=== PATIENT | female | born 1940 | race Caucasian/White ===

== ENCOUNTER 2016-08-19 22:38 | Emergency (ER) | payer OTHER, MEDICARE ==
[~2016-08-19] VITALS: Ht 154.9 cm; Wt 65.8 kg
[~2016-08-19 22:38] MED LIST: ALPRAZOLAM0.25 MG PO; ALPRAZOLAM0.5 MG PO; AMLODIPINE BESY1 CA1 PO; BIOTIN1000 MC1 PO; CELEBREX100 MG PO; CELEBREX200 MG PO; COLACE100 MG PO; COUMADIN 3 MG TA3 MG PO; ESCITALOPRAM OX10 MG PO; FIRST-VANCOM25 MG/ML PO; HCTZ/TRIAMTEREN1 TAB PO; HYDRODIURIL 112.5 M1 PO; LIORESAL 10MG T10 MG PO; LOTREL 5 MG-101 CAP PO; METOPROLOL SUC100 MG PO; PERCOCET 325 MG1 TA2 PO; PROBIOTIC1 EACH PO; TRAMADOL50 MG PO; VICODIN 300 MG-1 TAB PO; VICODIN5-300 PO; VIMOVO DR 500-1 EACH PO; VITAB121000 PO; VITAMIN D250000 UNIT PO; VITAMIN D50000 IU PO; VYTORIN 10 MG-41 TAB PO; ZOFRAN 4 MG TABL4 MG PO
--- NOTE | 2016-08-19 22:41 | ED GI/GU/ABDOMINAL COMPLAINT ---
History of Present Illness General Chief Complaint: Nausea, Vomiting, Diarrhea Stated Complaint: BIBA, VOMITING Source: patient, family, old records, EMS Exam Limitations: no limitations Allergies Coded Allergies: NO KNOWN ALLERGIES (05/22/16) Triage Nurses Notes Reviewed? yes ? N Is pt currently ? No HPI: Patient is a 76-year-old female presents complaining of nausea, vomiting. Symptoms onset this morning. Greater than 10 episodes of vomiting since onset. Patient reports she had a migraine earlier today which has resolved but vomiting has continued. Nausea is severe. No abdominal pain present. Last bowel movement was yesterday and normal. Positive chills since arrival to the emergency department. (BERTHA BRANDT,TING) Vital Signs & Intake/Output Vital Signs & Intake/Output Vital Signs Date Time Temp Pulse Resp B/P Pulse O2 O2 Flow FiO2 Ox Delivery Rate 08/20 1031 98.2 Reconcile Medications Alprazolam 0.25 MG TABLET 1 TAB PO TIDPRN PRN ANXIETY (Reported) Amlodipine Besylate/Benazepr (Lotrel 5 MG-10 MG) 1 CAP CAP 1 CAP PO DAILY BP (Reported) Biotin 1,000 MCG TAB.CHEW 1,000 MCG PO DAILY SUPPLEMENT (Reported) ERGOCALCIFEROL (VITAMIN D2) (Vitamin D2) 50,000 UNIT CAPSULE 1 CAP PO Q2W SUPPLEMENT (Reported) Ergocalciferol (Vitamin D2) (Vitamin D2) 50,000 UNIT CAPSULE 1 CAP PO Q 2 WEEKS SUPPLEMENT (Reported) Ezetimibe/Simvastatin (Vytorin 10 MG-40 MG) 1 TAB TAB 1 TAB PO DAILY CHOLESTEROL (Reported) Lactobacillus Acidophilus (Probiotic) 10 BILLION CELL CAPSULE 1 CAP PO DAILY SUPPLEMENT (Reported) Metoprolol Succinate 100 MG TAB.ER.24H 100 MG PO DAILY BP (Reported) Naproxen/Esomeprazole Mag (Vimovo Dr 500-20 MG Tablet) 500 MG-20 MG TAB.IR.DR 1 TAB PO BID "FOR MY JOINTS" (Reported) Ondansetron (Zofran 4 MG Tablet) 4 MG TAB 1 TAB PO Q6P PRN NAUSEA Ondansetron (Zofran Odt) 4 MG TAB.RAPDIS 1 TAB SL TID PRN nausea (JEAN MORENO,SHIELA) Past History Travel History Traveled to [place] past 21 day No Medical History Any Pertinent Medical History? see below for history Neurological: migraine EENT: NONE Cardiovascular: hypertension, PALPITATIONS Respiratory: NONE Gastrointestinal: C. 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 No (TING WILLOUGHBY) Review of Systems Review of Systems Constitutional: Reports: chills. Denies: fever. EENTM: Reports: no symptoms. Respiratory: Denies: cough, short of breath. Cardiovascular: Denies: chest pain. GI: Reports: see HPI, nausea, vomiting. Denies: abdominal pain, diarrhea. Genitourinary: Reports: no symptoms. Musculoskeletal: Denies: back pain, neck pain. Skin: Reports: no symptoms. Neurological/Psychological: Denies: headache. Hematologic/Endocrine: Denies: bruising, bleeding. Immunologic/Allergic: Denies: splenectomy. (TING WILLOUGHBY) Physical Exam Physical Exam General Appearance: well developed/nourished, alert, awake Head: atraumatic, normal appearance Eyes: Bilateral: normal appearance, PERRL, EOMI. Ears, Nose, Throat, Mouth: hearing grossly normal, moist mucous membrane Neck: normal inspection, supple, full range of motion Respiratory: normal breath sounds, chest non-tender, no respiratory distress, lungs clear Cardiovascular: regular rate/rhythm Gastrointestinal: normal bowel sounds, soft, non-tender Back: normal inspection, normal range of motion Extremities: normal range of motion Neurologic/Psych: awake, alert, oriented x 3 Skin: intact, normal color, warm/dry Core Measures ACS in differential dx? Yes ASA ordered for poss ACS? No-ACS ruled out Severe Sepsis Present: No Septic Shock Present: No (TING WILLOUGHBY) Progress Differential Diagnosis: ACUTE CORONARY SYNDROME, GASTROENTERITIS, COLITIS, ELECTROLYTE ABNORMALITY, DEHYDRATION, SEPSIS Initial ED EKG: normal sinus rhythm 69 bpm normal axis, normal intervals, no acute ischemic EKG abnormalities, nonspecific ST/T-wave changes compared to previous EKG Prior EKG: changed (nonspecific st/t wave changes) Hand-Off Endorsed To: NOEMÍ GARIBAY MD Endorsed Time: 0100 Pending: other (HYDRATION, RE-EVALUATION) (TING WILLOUGHBY) Plan of Care: Orders Procedure Date/time Status Regular Diet 08/20 L Active RAPID VIRAL INFLUENZA A 08/20 0359 Complete COMPREHENSIVE METABOLIC PANEL 08/19 2247 Complete CBC WITHOUT DIFFERENTIAL 08/19 2247 Complete EKG 08/19 2247 Active Laboratory Tests 08/19/16 2250: Anion Gap 17 H, Estimated GFR > 60, BUN/Creatinine Ratio 28.0 H, Glucose 192 H, Calcium 9.0, Total Bilirubin 1.4 H, AST 58 H, ALT 48, Alkaline Phosphatase 112, Total Protein 7.7, Albumin 4.7, Globulin 3.0, Albumin/Globulin Ratio 1.6, CBC w Diff NO MAN DIFF REQ, RBC 4.89, MCV 93.7, MCH 31.1 H, RDW 15.4 H, MPV 7.2 L, Gran % 84.8 H, Lymphocytes % 6.5 L, Monocytes % 8.7, Eosinophils % 0, Basophils % 0 L, Absolute Granulocytes 9.3 H, Absolute Lymphocytes 0.7 L, Absolute Monocytes 1.0 H, Absolute Eosinophils 0, Absolute Basophils 0, PUBS MCHC 33.2 Microbiology 08/20 0405 NASOPHARYN: Influenza Virus A & B Rapid Smear - COMP 08/20/2016 12:09:24 AM: Patient reports feeling moderately improved. Nausea has resolved, patient continues with chills. Plan for gentle hydration, continue to monitor overnight and discharge early in the morning if patient remains stable. Discussed with Dr. Garibay. Signed out to Dr. Garibay. MADAI SPARROW(DAUGHTER): [phone] (TING WILLOUGHYB) Unable to contact son to diamond picker the patient. Breakfast and antihypertensives ordered. (JEAN MORENO,SHIELA) Departure Departure Condition: Stable Clinical Impression Primary Impression: Nausea and vomiting Qualifiers: Vomiting type: unspecified Vomiting Intractability: non-intractable Qualified Code: R11.2 - Nausea with vomiting, unspecified Referrals: WILDA MORENO,NEYMAR Garcia (PCP/Family) Departure Forms: Customer Survey General Discharge Information (TING WILLOUGHBY) Departure Time of Disposition: 705 Disposition: HOME OR SELF CARE Additional Instructions: Clear liquids for 12-24 hours until better Prescriptions: Current Visit Scripts Ondansetron (Zofran Odt) 1 TAB SL TID PRN nausea #15 TAB PA/WORK MANAGER Co-Sign Statement Statement: ED Attending supervision documentation- [] I saw and evaluated the patient. I have also reviewed all the pertinent lab results and diagnostic results. I agree with the findings and the plan of care as documented in the PA's/WORK MANAGER's documentation. [] I have reviewed the ED Record and agree with the PA's/WORK MANAGER's documentation. [] Additions or exceptions (if any) to the PAs/WORK MANAGER's note and plan are summarized below: [] (NOEMÍ GARIBAY MD) PA/WORK MANAGER Co-Sign Statement Statement: ED Attending supervision documentation- [X] I saw and evaluated the patient. I have also reviewed all the pertinent lab results and diagnostic results. I agree with the findings and the plan of care as documented in the PA's/WORK MANAGER's documentation. [X] I have reviewed the ED Record and agree with the PA's/WORK MANAGER's documentation. [] Additions or exceptions (if any) to the PAs/WORK MANAGER's note and plan are summarized below: [] (JEAN MORENO,SHIELA) #15 TAB (NOEMÍ GARIBAY MD)
[2016-08-19 23:11] LABS: ABSOLUTE BASOPHIL COUNT 0 /CUMM (0.0-0.2); ABSOLUTE EOSINOPHIL COUNT 0 /CUMM (0.0-0.7); ABSOLUTE GRANULOCYTE CT 9.3 /CUMM (1.4-6.5); ABSOLUTE LYMPH COUNT 0.7 /CUMM (1.2-3.4); BASOPHIL % 0 % (0.0-2.0); EOSINOPHIL % 0 % (0-5); HEMATOCRIT 45.8 % (37-47); MEAN CORPUSCULAR HGB 31.1 PG (27.0-31.0); MEAN CORPUSCULAR HGB CONC 33.2 G/DL (33.0-37.0); MEAN CORPUSCULAR VOLUME 93.7 FL (81.0-99.0); MEAN PLATELET VOLUME 7.2 FL (7.4-10.4); PLATELET COUNT 195 /CUMM (130-400); RBC DISTRIBUTION WIDTH 15.4 % (11.5-14.5); RED BLOOD CELL CT 4.89 /CUMM (4.20-5.40)
[2016-08-19 23:12] LABS: GRANULOCYTE % 84.8 % (42.2-75.2)
[2016-08-20] MEDS ORDERED: ZOFRAN ODT4 M1 SL (07:07)
[2016-08-20 10:09] VITALS: BP 145/85
== END 2016-08-20 10:36 ==
LOC: ERH 22:38
PROVIDERS: Physician Assistant
DX: R11.2 Nausea with vomiting, unspecified (principal)
CPT/HCPCS: 87804; 87804-59; 93005; 93010; 96374; 96375; 96376; J2405; J2550; J2765

== ENCOUNTER 2016-08-29 20:52 | Emergency (ER) | payer OTHER, MEDICARE ==
[~2016-08-29] VITALS: Ht 165.1 cm; Wt 74.8 kg
[~2016-08-29 20:52] MED LIST changes: +ZOFRAN ODT4 M1 SL
--- NOTE | 2016-08-29 21:04 | ED SYNCOPE COMPLAINT ---
History of Present Illness General Chief Complaint: Fall Stated Complaint: BIBA FALL Source: patient, EMS Exam Limitations: no limitations Vital Signs & Intake/Output Vital Signs & Intake/Output Vital Signs Date Time Temp Pulse Resp B/P Pulse O2 O2 Flow FiO2 Ox Delivery Rate 08/30 0104 97.7 85 18 135/82 98 Room Air 08/29 2224 Room Air 08/29 2109 97.7 87 18 142/87 97 Room Air ED Intake and Output 08/30 0000 08/29 1200 Intake Total Output Total Balance Patient 165 lb Weight Allergies Coded Allergies: NO KNOWN ALLERGIES (05/22/16) Reconcile Medications Alprazolam 0.25 MG TABLET 1 TAB PO TIDPRN PRN ANXIETY (Reported) Amlodipine Besylate/Benazepr (Lotrel 5 MG-10 MG) 1 CAP CAP 1 CAP PO DAILY BP (Reported) Biotin 1,000 MCG TAB.CHEW 1,000 MCG PO DAILY SUPPLEMENT (Reported) ERGOCALCIFEROL (VITAMIN D2) (Vitamin D2) 50,000 UNIT CAPSULE 1 CAP PO Q2W SUPPLEMENT (Reported) Ergocalciferol (Vitamin D2) (Vitamin D2) 50,000 UNIT CAPSULE 1 CAP PO Q 2 WEEKS SUPPLEMENT (Reported) Ezetimibe/Simvastatin (Vytorin 10 MG-40 MG) 1 TAB TAB 1 TAB PO DAILY CHOLESTEROL (Reported) Lactobacillus Acidophilus (Probiotic) 10 BILLION CELL CAPSULE 1 CAP PO DAILY SUPPLEMENT (Reported) Metoprolol Succinate 100 MG TAB.ER.24H 100 MG PO DAILY BP (Reported) Naproxen/Esomeprazole Mag (Vimovo Dr 500-20 MG Tablet) 500 MG-20 MG TAB.IR.DR 1 TAB PO BID "FOR MY JOINTS" (Reported) Ondansetron (Zofran 4 MG Tablet) 4 MG TAB 1 TAB PO Q6P PRN NAUSEA Ondansetron (Zofran Odt) 4 MG TAB.RAPDIS 1 TAB SL TID PRN nausea Triage Note: PT BIBA FROM HOME. PER EMS PT ?SYNCOPAL EPISODE, LIFE ALERT BUTTON WAS PRESSED. PT DOES NOT RECALL EVENT, PT TEARFUL AND ANXIOUS ON ARRIVAL. SLIGHTLY CONFUSED, NO FAMILY WITH PT. PT DENIES TAKING ANY BLOOD THINNERS. AT BEDSIDE FOR PT EVAL. Triage Nurses Notes Reviewed? yes Timing: single episode today Precipitating Factors: none Context: uncertain etiology Episode Description: see below Loss of Consciousness: unsure Associated Symptoms: confusion HPI: 76 yo woman in prior good health, presents after syncopal type episode. Per the patient, she does not recall the event. "My medical alert must have gone off when I fell." Past History Travel History Traveled to [place] past 21 day No Medical History Any Pertinent Medical History? see below for history Neurological: migraine EENT: NONE Cardiovascular: hypertension, PALPITATIONS Respiratory: NONE Gastrointestinal: C. 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 No Review of Systems Review of Systems Constitutional: Reports: no symptoms. EENTM: Reports: no symptoms. Respiratory: Reports: no symptoms. Cardiovascular: Reports: no symptoms. GI: Reports: no symptoms. Genitourinary: Reports: no symptoms. Musculoskeletal: Reports: no symptoms. Skin: Reports: no symptoms. Neurological/Psychological: Reports: no symptoms. All Other Systems: Reviewed and Negative Physical Exam Physical Exam General Appearance: well developed/nourished, mild distress Head: atraumatic, normal appearance Eyes: Bilateral: normal appearance, PERRL, EOMI. Ears, Nose, Throat: normal pharynx, normal ENT inspection Neck: normal inspection, supple, full range of motion Respiratory: normal breath sounds, chest non-tender, no respiratory distress, quiet respiration, lungs clear Cardiovascular: regular rate/rhythm, normal peripheral pulses Gastrointestinal: normal bowel sounds, soft, non-tender, no organomegaly Back: normal inspection, normal range of motion Extremities: normal inspection, normal capillary refill, normal range of motion, no edema Psychiatric: awake, alert, oriented x 3 Cranial Nerves: normal hearing, normal speech, PERRL Coordination/Gait: normal finger to nose Motor/Sensory: no motor/sensory deficits Skin: intact, normal color, warm/dry Core Measures ACS in differential dx? No CVA/TIA Diagnosis: No Severe Sepsis Present: No Septic Shock Present: No Progress Differential Diagnosis: orthostatic syncope, seizure, TIA/CVA, etoh vs other. Plan of Care: Orders Procedure Date/time Status Add-on Test (ER Only) 08/29 2142 Active ETHANOL 08/29 2129 Complete URINALYSIS 08/29 2103 Active TROPONIN LEVEL 08/29 2103 Complete PROLACTIN 08/29 2103 Complete LIPASE 08/29 2103 Complete HEPATIC FUNCTION PANEL 08/29 2103 Complete CBC WITHOUT DIFFERENTIAL 08/29 2103 Complete BASIC METABOLIC PANEL 08/29 2103 Complete AMYLASE 08/29 2103 Complete EKG 08/29 2055 Active Laboratory Tests 08/29/162129: Anion Gap 16, Estimated GFR > 60, BUN/Creatinine Ratio 12.0, Glucose 107 H, Calcium 9.0, Total Bilirubin 0.4, Direct Bilirubin 0.4, AST 41 H, ALT 46, Alkaline Phosphatase 97, Troponin I < 0.01, Total Protein 6.4, Albumin 3.6, Amylase 46, Lipase 252, Prolactin 38.6 H, CBC w Diff NO MAN DIFF REQ, RBC 4.70, MCV 93.2, MCH 31.5 H, RDW 15.6 H, MPV 6.8 L, Gran % 47.4, Lymphocytes % 34.7, Monocytes % 16.2 H, Eosinophils % 1.1, Basophils % 0.6, Absolute Granulocytes 2.5, Absolute Lymphocytes 1.8, Absolute Monocytes 0.9 H, Absolute Eosinophils 0.1, Absolute Basophils 0, PUBS MCHC 33.8, Serum Alcohol 331.0 Diagnostic Imaging: Viewed by Me: Radiology Read, CT Scan. Discussed w/RAD: Radiology Read, CT Scan. Radiology Impression: head ct... chronic sinusitis, microvascular changes... full report below. CXR Impression: no acute abnormality, no infiltrates, normal size heart, normal mediastinum Pre-Hospital EKG: normal axis, normal intervals, normal p-waves, normal QRS complex, normal sinus rhythm Comments: PATIENT: ISABEL ROLDAN PRESENT AGE: 76 PATIENT ACCOUNT NO: [id number] : 41 LOCATION: [facility] ORDERING PHYSICIAN: SHIRA WALSH MD SERVICE DATE: 08/29/16 EXAM TYPE: RAD - XRY-PORTABLE CHEST XRAY EXAMINATION: XR PORTABLE CHEST CLINICAL INFORMATION: Syncope. COMPARISON: Prior chest radiographs dated 05/22/2016 and 02/28/2009. TECHNIQUE: Portable AP view of the chest was obtained. FINDINGS: The heart, great vessels, pulmonary vasculature and mediastinum are stable. The lungs show no focal infiltrate, effusion or pneumothorax. Lung volumes are somewhat low. There is no acute osseous abnormality. There is a moderate thoracic dextroscoliosis. IMPRESSION: No active cardiopulmonary disease. There is no significant interim change. DICTATED BY: NEYMAR LOOMIS MD DATE/TIME DICTATED:08/29/162127 CLINICAL STAFF ANESTHESIOLOGIST:LEMA DATE/TIME TRANSCRIBED:08/29/162127 CONFIDENTIAL, DO NOT COPY WITHOUT APPROPRIATE AUTHORIZATION. <Electronically signed in Other Vendor System> SIGNED BY: NEYMAR LOOMIS MD 08/29/162133 PATIENT: ISABEL ROLDAN PRESENT AGE: 76 PATIENT ACCOUNT NO: [id number] : 41 LOCATION: [facility] ORDERING PHYSICIAN: SHIRA WALSH MD SERVICE DATE: 08/29/16 EXAM TYPE: CAT - CT HEAD WO IV CONTRAST EXAMINATION: CT HEAD WITHOUT CONTRAST CLINICAL INFORMATION: Acute mental status changes. COMPARISON: Prior CT examinations of the brain, most recently 05/22/2016. TECHNIQUE: Contiguous axial imaging was performed from the skull base to vertex without intravenous administration of contrast. Additional coronal reformatted images are submitted. DLP: 600.71 mGy-cm FINDINGS: There is no evidence of acute intracranial hemorrhage or territorial infarction. No abnormal mass effect or midline shift is seen. Lamb to white matter differentiation is well preserved. No extra-axial fluid collections are identified. The ventricles and sulci are age-appropriate in size. There is mild patchy low attenuation change in the periventricular white matter spaces. There are atherosclerotic calcifications of the skull base vasculature. There is hyperostosis frontalis interna. No acute osseous abnormality is seen. There is sphenoid sinusitis. The mastoid air cells are well-aerated. IMPRESSION: 1. No acute intracranial pathology. 2. There is mild patchy low attenuation change in the periventricular white matter spaces, commonly associated with chronic microangiopathy. 3. There is sphenoid sinusitis. DICTATED BY: NEYMAR LOOMIS MD DATE/TIME DICTATED:08/29/162130 CLINICAL STAFF ANESTHESIOLOGIST:LEMA DATE/TIME TRANSCRIBED:08/29/162130 CONFIDENTIAL, DO NOT COPY WITHOUT APPROPRIATE AUTHORIZATION. <Electronically signed in Other Vendor System> SIGNED BY: NEYMAR LOOMIS MD 08/29/162136 Departure Departure Disposition: HOME OR SELF CARE Condition: Stable Clinical Impression Primary Impression: Alcohol intoxication Secondary Impressions: Fall Referrals: NEYMAR ASTUDILLO MD (PCP/Family) Departure Forms: Customer Survey General Discharge Information Comments 08/29/16, 22:40... discussed with daughter who shares patient had alcoholism years ago. She was unaware of alcohol abuse at present. 08/29/16, 23:55... pt awake and alert... She shared that she drank "lord dwayne " this evening... "probably too much." She states that this is not a chronic issue. She denies a problem with alcohol. She would like to go home. 08/30/16, 1:20am.... her sister arrived at bedside and will watch her tonight. She is awake and alert and feels comfortable to go home.
--- NOTE | 2016-08-29 21:34 | RADIOLOGY REPORT ---
EXAMINATION: XR PORTABLE CHEST CLINICAL INFORMATION: Syncope. COMPARISON: Prior chest radiographs dated 05/22/2016 and 02/28/2009. TECHNIQUE: Portable AP view of the chest was obtained. FINDINGS: The heart, great vessels, pulmonary vasculature and mediastinum are stable. The lungs show no focal infiltrate, effusion or pneumothorax. Lung volumes are somewhat low. There is no acute osseous abnormality. There is a moderate thoracic dextroscoliosis. IMPRESSION: No active cardiopulmonary disease. There is no significant interim change.
[2016-08-29 21:36] LABS: ABSOLUTE BASOPHIL COUNT 0 /CUMM (0.0-0.2); ABSOLUTE EOSINOPHIL COUNT 0.1 /CUMM (0.0-0.7); ABSOLUTE GRANULOCYTE CT 2.5 /CUMM (1.4-6.5); ABSOLUTE LYMPH COUNT 1.8 /CUMM (1.2-3.4); ABSOLUTE MONOCYTE COUNT 0.9 /CUMM (0.10-0.60); BASOPHIL % 0.6 % (0.0-2.0); EOSINOPHIL % 1.1 % (0-5); GRANULOCYTE % 47.4 % (42.2-75.2); HEMATOCRIT 43.8 % (37-47); MEAN CORPUSCULAR HGB 31.5 PG (27.0-31.0); MEAN CORPUSCULAR HGB CONC 33.8 G/DL (33.0-37.0); MEAN CORPUSCULAR VOLUME 93.2 FL (81.0-99.0); MEAN PLATELET VOLUME 6.8 FL (7.4-10.4); PLATELET COUNT 182 /CUMM (130-400); RBC DISTRIBUTION WIDTH 15.6 % (11.5-14.5); WHITE BLOOD CELL COUNT 5.3 /CUMM (4.8-10.8)
--- NOTE | 2016-08-29 21:37 | CT SCAN REPORT ---
EXAMINATION: CT HEAD WITHOUT CONTRAST CLINICAL INFORMATION: Acute mental status changes. COMPARISON: Prior CT examinations of the brain, most recently 05/22/2016. TECHNIQUE: Contiguous axial imaging was performed from the skull base to vertex without intravenous administration of contrast. Additional coronal reformatted images are submitted. DLP: 600.71 mGy-cm FINDINGS: There is no evidence of acute intracranial hemorrhage or territorial infarction. No abnormal mass effect or midline shift is seen. Lamb to white matter differentiation is well preserved. No extra-axial fluid collections are identified. The ventricles and sulci are age-appropriate in size. There is mild patchy low attenuation change in the periventricular white matter spaces. There are atherosclerotic calcifications of the skull base vasculature. There is hyperostosis frontalis interna. No acute osseous abnormality is seen. There is sphenoid sinusitis. The mastoid air cells are well-aerated. IMPRESSION: 1. No acute intracranial pathology. 2. There is mild patchy low attenuation change in the periventricular white matter spaces, commonly associated with chronic microangiopathy. 3. There is sphenoid sinusitis.
[2016-08-30 01:04] VITALS: BP 135/82
== END 2016-08-30 01:05 ==
LOC: ERH 20:52
PROVIDERS: Pediatrics
DX: Z04.3 Encounter for examination and observation following other accident (principal); F10.129 Alcohol abuse with intoxication, unspecified; R55 Syncope and collapse; R41.0 Disorientation, unspecified; I10 Essential (primary) hypertension; Z72.0 Tobacco use; W19.XXXA Unspecified fall, initial encounter
CPT/HCPCS: 93005; 93010; 96360; G0480

== ENCOUNTER 2016-10-20 14:52 | Emergency (ER) | payer OTHER, MEDICARE ==
[~2016-10-20] VITALS: Ht 152.4 cm; Wt 68.0 kg
--- NOTE | 2016-10-20 17:15 | ED GENERAL ADULT ---
History of Present Illness General Chief Complaint: Headache Stated Complaint: MIGRAINE W/VOMITING Source: patient, old records Exam Limitations: no limitations Vital Signs & Intake/Output Vital Signs & Intake/Output Vital Signs Date Time Temp Pulse Resp B/P B/P Pulse O2 O2 Flow FiO2 Mean Ox Delivery Rate 10/20 2028 98.0 84 16 160/73 97 Room Air 10/20 1904 97.6 82 18 119/64 96 10/20 1747 98.6 79 16 128/73 94 Room Air 10/20 1659 96 Room Air 10/20 1516 95.8 83 18 145/101 100 Room Air Allergies Coded Allergies: NO KNOWN ALLERGIES (05/22/16) Reconcile Medications Alprazolam 0.25 MG TABLET 1 TAB PO TIDPRN PRN ANXIETY (Reported) Amlodipine Besylate/Benazepr (Lotrel 5 MG-10 MG) 1 CAP CAP 1 CAP PO DAILY BP (Reported) Biotin 1,000 MCG TAB.CHEW 1,000 MCG PO DAILY SUPPLEMENT (Reported) ERGOCALCIFEROL (VITAMIN D2) (Vitamin D2) 50,000 UNIT CAPSULE 1 CAP PO Q2W SUPPLEMENT (Reported) Ergocalciferol (Vitamin D2) (Vitamin D2) 50,000 UNIT CAPSULE 1 CAP PO Q 2 WEEKS SUPPLEMENT (Reported) Ezetimibe/Simvastatin (Vytorin 10 MG-40 MG) 1 TAB TAB 1 TAB PO DAILY CHOLESTEROL (Reported) Lactobacillus Acidophilus (Probiotic) 10 BILLION CELL CAPSULE 1 CAP PO DAILY SUPPLEMENT (Reported) Metoclopramide HCl (Reglan) 10 MG TABLET 1 TAB PO 4 TIMES/DAY PRN nausea 30 minutes before meals and bedtime Metoprolol Succinate 100 MG TAB.ER.24H 100 MG PO DAILY BP (Reported) Naproxen/Esomeprazole Mag (Vimovo Dr 500-20 MG Tablet) 500 MG-20 MG TAB.IR.DR 1 TAB PO BID "FOR MY JOINTS" (Reported) Ondansetron (Zofran 4 MG Tablet) 4 MG TAB 1 TAB PO Q6P PRN NAUSEA Ondansetron (Zofran Odt) 4 MG TAB.RAPDIS 1 TAB SL TID PRN nausea Triage Note: C/O HEADACHE X 2 DAYS WITH VOMITING. UNABLE TO EAT OR DRINK X 4 DAYS. PMH: MIGRAINES Triage Nurses Notes Reviewed? yes Onset: Gradual Duration: day(s): (4) Timing: recent history Injury Environment: home Severity: moderate Severity Numbers: 8 No Modifying Factors: none Associated Symptoms: N/V HPI: Patient is a 76-year-old female with history of migraine headaches presenting to the emergency department with chief complaint of frontal throbbing headache, nausea and vomiting this been going on for the past 4 days. Patient reports that over the past 2 or 3 days she has had multiple episodes of emesis daily. Denies any blood or ileus contents. No diarrhea. She does report upper abdominal pain, she thinks it may be related to vomiting. 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 No fevers or chills. Denies neck pain. Feels similar to previous migraine in the past. Has been taking tramadol and Zofran with little relief. Denies chest pain or palpitations. No shortness of breath. Denies any light sensitivity. No visual changes or auras. (OREN GALLOWAY) Past History Travel History Traveled to [place] past 21 day No Medical History Any Pertinent Medical History? see below for history Neurological: migraine EENT: NONE Cardiovascular: hypertension, PALPITATIONS Respiratory: NONE Gastrointestinal: C. DIFF Hepatic: NONE Renal: NONE Musculoskeletal: osteoarthritis Psychiatric: NONE Endocrine: NONE Blood Disorders: NONE Cancer(s): NONE CERNER ANALYST/Reproductive: NONE History of MRSA: No History of VRE: No History of CDIFF: No Surgical History Surgical History: knee replacement Psychosocial History Who do you live with Patient/Self Services at Home None What is your primary language Bulgarian Tobacco Use: Quit >30 days ago ETOH Use: occasional use Family History Hx Contributory? No (OREN GALLOWAY) Review of Systems Review of Systems Constitutional: Reports: no symptoms. Comments Review of systems: See HPI, All other systems negative. Constitutional, no chills fever or weight loss HEENT: No visual changes no sore throat no congestion Cardiovascular: No chest pain ,palpitation , orthopnea or ankle swelling Skin, no jaundice no rashes Respiratory: No dyspnea cough sputum or hemoptysis GI: positive nausea and vomiting no diarrhea : No dysuria No hematuria Muscle skeletal: no back pain, no neck pain, Neurologic: No numbness no confusion Psych: No stress anxiety or depression,. Heme/endocrine: No bruising no bleeding no polyuria or polydipsia Immunology: No splenectomy or history of AIDS (RENÉ BRANDT,OREN) Physical Exam Physical Exam General Appearance: well developed/nourished, no apparent distress, alert, awake , comfortable Comments: Well-developed well-nourished person in no acute distress HEENT: extraocular motion intact, no nystagmus. Pupils equally round and reactive to light and accommodation. Nose is atraumatic. External auditory canal and Tympanic membranes clear. Pharynx normal. No swelling or edema. Funduscopic : Somewhat limited secondary to no dilation prior to exam, no obvious retinal hemorrhage or venous nicking appreciated. Very dry oral mucosa, dry lips. No sclera icterus noted. Neck: Supple, no lymphadenopathy, normal range of motion without pain or tenderness. Negative Kernig's, negative Brudzinski's. Back: Nontender Cardiovascular: Regular rate and rhythms no murmurs rubs or gallops, normal JVP Respiratory: Chest nontender. No respiratory distress.breath sounds clear to auscultation bilaterally Abdomen: Soft, mild tenderness to palpation in epigastric region, no rebound or guarding, nondistended, no appreciable organomegaly. Normal bowel sounds. No ascites Extremity: No edema, no calf tenderness to palpation, normal and equal pulses. Muscular strength is 5 out of 5 in upper and lower extremities. Fiber Technician strength is equal and symmetric bilaterally. Neuro: Alert oriented x3, motor sensory normal, cranial nerves II through XII grossly intact. Cerebellar testing is unremarkable. No difficulty with finger to nose testing. Negative modified Romberg. Skin: No appreciable rash on exposed skin, skin is warm and dry. Psych: Mood and affect is normal, memory and judgment is normal. Core Measures ACS in differential dx? Yes CVA/TIA Diagnosis: No Severe Sepsis Present: No Septic Shock Present: No (RENÉ BRANDT,OREN) Progress Differential Diagnoses I considered the following diagnoses in my evaluation of the patient: Pancreatitis, dehydration, electrolyte abnormality, migraine headache, subarachnoid hemorrhage, meningitis Diagnostic Imaging: Viewed by Me: Ultrasound. Discussed w/RAD: Ultrasound. Radiology Impression: PATIENT: ISABEL ROLDAN PRESENT AGE: 76 PATIENT ACCOUNT NO: [id number] : 41 LOCATION: [facility] ([place] ORDERING PHYSICIAN: OREN BRANDT SERVICE DATE: 10/20/16 EXAM TYPE: US - US-LIMITED ABDOMEN EXAMINATION: US ABDOMEN LIMITED CLINICAL INFORMATION: Nausea, vomiting, and upper abdominal pain with elevated bilirubin.. COMPARISON: Abdominal CT 11/28/2013. TECHNIQUE: Real-time imaging of the right upper quadrant abdominal viscera. FINDINGS: PANCREAS: Normal. LIVER: Normal. The liver demonstrates normal size, contour and echogenicity. No focal lesion or intrahepatic biliary duct dilatation. GALLBLADDER: Normal. The gallbladder is physiologically distended without evidence of stones, sludge, polyps, or pericholecystic fluid. Gallbladder wall thickness at the upper limits of normal. COMMON BILE DUCT: Normal in caliber measuring 0.54 cm in diameter. RIGHT KIDNEY: Normal. No hydronephrosis. No renal calculi or focal parenchymal lesions. The kidney measures 9.33 cm in maximum dimension. FREE FLUID: None. IMPRESSION: Normal right upper quadrant ultrasound. The gallbladder is normal. DICTATED BY: BYRON GARCIA MD DATE/TIME DICTATED:10/20/161919 BILL PEDDLER:JUAN DAVID DATE/TIME TRANSCRIBED:10/20/161919 CONFIDENTIAL, DO NOT COPY WITHOUT APPROPRIATE AUTHORIZATION. <Electronically signed in Other Vendor System> SIGNED BY: BYRON GARCIA MD 10/20/161925 Initial ED EKG: SINUS RHYTHM AT 67 BPM, NONSPECIFIC t ABNORMALITIES IN THE ANTERIOR AND LATERAL LEADS Comments: 10/20/2016 6:34:42 PM patient is afebrile, neurologically intact on exam. She has mild epigastric pain on exam. Patient not actively vomiting. We will start IV fluids. Patient given antiemetics. CBC, CMP, lipase was sent. 10/20/2016 7:35:49 PM patient informed of lab work results. Patient will go for ultrasound to rule out intra-ductal stone as lipase is elevated and so is bilirubin. She reports that she is feeling much improved after hydration and antiemetics. 10/20/2016 8:33:48 PM patient encouraged to stay for admission. Patient will need an MRCP to rule out intraductal stone. Patient has elevation in indirect and direct bilirubin along with lipase. No signs of stone on ultrasound. Awaiting callback from primary care physician Dr. Mullen and gastroenterology. Patient will like to leave AGAINST MEDICAL ADVICE. Does not want any antibiotics until we speak with her primary care physician. Spoke with Dr. Santiago and Dr. Astudillo- they will see her in the office tomorrow morning first thing. Patient will be cleared for discharge. She was educated on signs and symptoms to return. Dr. Santiago thinks that this may be alcohol related. Patient refused antibiotics prior to discharge and would like to see her primary care physician first. (RENÉ BRANDT,OREN) Plan of Care: Orders Procedure Date/time Status Add-on Test (ER Only) 10/21 2039 Active Add-on Test (ER Only) 10/20 2000 Active Add-on Test (ER Only) 10/20 1725 Active PARTIAL THROMBOPLASTIN TIME 10/20 165 Complete PROTHROMBIN TIME 10/20 1654 Complete LIPASE 10/20 1654 Active ETHANOL 10/20 1654 Active DIRECT BILIRUBIN 10/20 1654 Active URINALYSIS 10/20 162 Active TROPONIN LEVEL 10/20 1625 Active COMPREHENSIVE METABOLIC PANEL 10/20 162 Active CBC WITHOUT DIFFERENTIAL 10/20 1625 Complete EKG 10/20 1625 Active Laboratory Tests 10/20/16 1654: Anion Gap 18 H, Estimated GFR > 60, BUN/Creatinine Ratio 23.3, Glucose 133 H, Calcium 10.0, Total Bilirubin 2.0 H, Direct Bilirubin 0.6 H, AST 40 H, ALT 39 , Alkaline Phosphatase 107, Troponin I < 0.01, Total Protein 8.0, Albumin 4.7, Globulin 3.3, Albumin/Globulin Ratio 1.4, Lipase 825 H, PT 11.0, INR 1.05, APTT 25, CBC w Diff NO MAN DIFF REQ, RBC 5.36, MCV 93.0, MCH 31.1 H, RDW 15.1 H, MPV 7.8, Gran % 86.1 H, Lymphocytes % 6.0 L, Monocytes % 7.8, Eosinophils % 0.1, Basophils % 0 L, Absolute Granulocytes 8.4 H, Absolute Lymphocytes 0.6 L , Absolute Monocytes 0.8 H, Absolute Eosinophils 0, Absolute Basophils 0, PUBS MCHC 33.4, Serum Alcohol Pending Departure Departure Time of Disposition: 2054 Disposition: HOME OR SELF CARE Condition: Stable Clinical Impression Primary Impression: Pancreatitis Qualifiers: Chronicity: acute Pancreatitis type: unspecified pancreatitis type Acute pancreatitis complication: unspecified Qualified Code: K85.90 - Acute pancreatitis without necrosis or infection, unspecified Secondary Impressions: Hyperbilirubinemia Referrals: HALEIGH MORENO,ALHAJI ASTUDILLO MD,NEYMAR Garcia (PCP/Family) Additional Instructions: Follow-up tomorrow morning with Dr. Mullen in the office. He was scheduled for an outpatient MRCP. Also follow-up with Dr. Santiago. Clear liquid diet over the next 24-48 hours. Return if you develop any fevers, worsening pain, if vomiting doesn't stop or concerns. Take Reglan as prescribed for nausea. Departure Forms: Customer Survey General Discharge Information Prescriptions: Current Visit Scripts Metoclopramide HCl (Reglan) 1 TAB PO 4 TIMES/DAY PRN nausea #20 TAB 30 minutes before meals and bedtime (OREN GALLOWAY) PA/MUSIC SUPERVISOR Co-Sign Statement Statement: ED Attending supervision documentation- [X] I saw and evaluated the patient. I have also reviewed all the pertinent lab results and diagnostic results. I agree with the findings and the plan of care as documented in the PA's/MUSIC SUPERVISOR's documentation. [X] I have reviewed the ED Record and agree with the PA's/MUSIC SUPERVISOR's documentation. [] Additions or exceptions (if any) to the PAs/MUSIC SUPERVISOR's note and plan are summarized below: [] (JEAN MORENO,SHIELA) Critical Care Note Critical Care Note Critical Care Time: 30-74 min (OREN GALLOWAY)
[2016-10-20 17:17] LABS: ABSOLUTE BASOPHIL COUNT 0 /CUMM (0.0-0.2); ABSOLUTE EOSINOPHIL COUNT 0 /CUMM (0.0-0.7); ABSOLUTE GRANULOCYTE CT 8.4 /CUMM (1.4-6.5); ABSOLUTE LYMPH COUNT 0.6 /CUMM (1.2-3.4); ABSOLUTE MONOCYTE COUNT 0.8 /CUMM (0.10-0.60); BASOPHIL % 0 % (0.0-2.0); EOSINOPHIL % 0.1 % (0-5); GRANULOCYTE % 86.1 % (42.2-75.2); HEMATOCRIT 49.8 % (37-47); MEAN CORPUSCULAR HGB 31.1 PG (27.0-31.0); MEAN CORPUSCULAR HGB CONC 33.4 G/DL (33.0-37.0); MEAN PLATELET VOLUME 7.8 FL (7.4-10.4); PLATELET COUNT 191 /CUMM (130-400); RBC DISTRIBUTION WIDTH 15.1 % (11.5-14.5); RED BLOOD CELL CT 5.36 /CUMM (4.20-5.40); WHITE BLOOD CELL COUNT 9.7 /CUMM (4.8-10.8)
--- NOTE | 2016-10-20 19:26 | ULTRASOUND REPORT ---
EXAMINATION: US ABDOMEN LIMITED CLINICAL INFORMATION: Nausea, vomiting, and upper abdominal pain with elevated bilirubin.. COMPARISON: Abdominal CT 11/28/2013. TECHNIQUE: Real-time imaging of the right upper quadrant abdominal viscera. FINDINGS: PANCREAS: Normal. LIVER: Normal. The liver demonstrates normal size, contour and echogenicity. No focal lesion or intrahepatic biliary duct dilatation. GALLBLADDER: Normal. The gallbladder is physiologically distended without evidence of stones, sludge, polyps, or pericholecystic fluid. Gallbladder wall thickness at the upper limits of normal. COMMON BILE DUCT: Normal in caliber measuring 0.54 cm in diameter. RIGHT KIDNEY: Normal. No hydronephrosis. No renal calculi or focal parenchymal lesions. The kidney measures 9.33 cm in maximum dimension. FREE FLUID: None. IMPRESSION: Normal right upper quadrant ultrasound. The gallbladder is normal.
[2016-10-20 20:27] LABS: PTT 25 SEC (25-37)
[2016-10-20 20:29] VITALS: BP 160/73
[2016-10-20] MEDS ORDERED: REGLAN10 M1 PO (20:56)
== END 2016-10-20 21:18 ==
LOC: ERH 14:52
PROVIDERS: Physician Assistant
DX: K85.90 Acute pancreatitis without necrosis or infection, unspecified (principal); E80.6 Other disorders of bilirubin metabolism; R51 Headache; I10 Essential (primary) hypertension; Z87.891 Personal history of nicotine dependence
CPT/HCPCS: 93005; 93010; 96361; 96365; 96366; 96375; 99291; G0480; J1200; J2765

== ENCOUNTER 2017-07-15 12:02 | Emergency (ER) | payer OTHER, MEDICARE ==
[~2017-07-15] VITALS: Ht 154.9 cm; Wt 68.0 kg
[~2017-07-15 12:02] MED LIST changes: +ALPRAZOLAM0.25 M1 PO; -ALPRAZOLAM0.25 MG PO; -LOTREL 5 MG-101 CAP PO; +LOTREL 5-10 MG1 EACH PO; +METOPROLOL SUC100 M2 PO; -METOPROLOL SUC100 MG PO; +REGLAN10 M1 PO; -VYTORIN 10 MG-41 TAB PO; +VYTORIN 10-401 EACH PO
--- NOTE | 2017-07-15 12:22 | ED AMS/SEIZURE/WEAK/DIZZY ---
See Addendum History of Present Illness General Chief Complaint: Altered Mental Status Stated Complaint: AMS Source: patient Exam Limitations: no limitations Allergies Coded Allergies: NO KNOWN ALLERGIES (05/22/16) Triage Note: THE PATIENT CALLED THE AMBULANCE TODAY FOR INCREASED CONFUSION. SHE SAID THAT SHE HAD CONFUSION LAST NIGHT WELL WHEN SHE WENT HOME FROM VISITING HER AT [facility]. SHE COULDN'T REMEMBER THE YEAR. Triage Nurses Notes Reviewed? yes Onset: Abrupt Duration: day(s): (2), constant, continues in ED Timing: recent history Injury Environment: home No Modifying Factors: none HPI: 77-year-old female comes into the emergency room for increased confusion. She called the ambulance herself. Her is currently admitted upstairs here in the hospital for pneumonia. She reports that she was visiting him last night. She cannot recall the drive home. She feels increasingly confused. She feels like her short-term memory is not well. She denies any chest pain shortness of breath fever chills vomiting cough or urinary symptoms. Denies any pain anywhere. She denies any illicit drug use. The daughter told me privately that there was a history of some alcohol abuse in the past. (Milad BRANDT,Tristen) Vital Signs & Intake/Output Vital Signs & Intake/Output Vital Signs Date Time Temp Pulse Resp B/P B/P Pulse O2 O2 Flow FiO2 Mean Ox Delivery Rate 07/15 1756 177/109 07/15 1715 98.5 59 16 177/109 95 Room Air 07/15 1529 98.4 93 19 165/94 97 Nasal 2.0L Cannula 07/15 1407 98.3 84 14 144/88 92 Room Air 07/15 1251 81 14 162/80 94 Room Air 07/15 1219 Room Air 07/15 1218 98.4 83 17 165/96 94 Room Air Reconcile Medications Alprazolam 0.25 MG TABLET 1 TAB PO BIDP PRN ANXIETY (Reported) Amlodipine Besylate/Benazepril (Lotrel 5-10 MG Capsule) 5 MG-10 MG CAPSULE 1 CAP PO DAILY BP (Reported) Biotin 1,000 MCG TAB.CHEW 1,000 MCG PO DAILY SUPPLEMENT (Reported) Ergocalciferol (Vitamin D2) (Vitamin D2) 50,000 UNIT CAPSULE 1 CAP PO Q 2 WEEKS SUPPLEMENT (Reported) Escitalopram Oxalate 10 MG TABLET 1 TAB PO DAILY DEPRESSION (Reported) Ezetimibe/Simvastatin (Vytorin 10-40 MG Tablet) 10 MG-40 MG TABLET 1 TAB PO DAILY CHOLESTEROL (Reported) Gabapentin 300 MG CAPSULE 1 CAP PO BID PAIN (Reported) Ibuprofen/Famotidine (Duexis 800-26.6 MG Tablet) 800 MG-26.6 MG TABLET 1 TAB PO BID PAIN (Reported) Metoclopramide HCl (Reglan) 10 MG TABLET 1 TAB PO 4 TIMES/DAY PRN nausea 30 minutes before meals and bedtime Metoprolol Succinate 100 MG TAB.ER.24H 1 TAB PO DAILY BP (Reported) Ondansetron (Zofran Odt) 4 MG TAB.RAPDIS 1 TAB SL TID PRN nausea (Francia MORENO,Jalil Garcia) Past History Medical History Any Pertinent Medical History? see below for history Neurological: migraine EENT: NONE Cardiovascular: hypertension, PALPITATIONS Respiratory: NONE Gastrointestinal: C. 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 No (Tristen White) Review of Systems Review of Systems Constitutional: Reports: no symptoms. EENTM: Reports: no symptoms. Respiratory: Reports: no symptoms. Cardiovascular: Reports: no symptoms. GI: Reports: no symptoms. Genitourinary: Reports: no symptoms. Musculoskeletal: Reports: no symptoms. Skin: Reports: no symptoms. Neurological/Psychological: Reports: see HPI. Hematologic/Endocrine: Reports: no symptoms. Immunologic/Allergic: Reports: no symptoms. All Other Systems: Reviewed and Negative (Tristen White) Physical Exam Physical Exam General Appearance: well developed/nourished, no apparent distress, alert, awake Head: atraumatic, normal appearance Eyes: Bilateral: normal appearance, PERRL, EOMI. 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 No CVA/TIA Diagnosis No Sepsis Present: No Sepsis Focused Exam Completed? No (Tristen White) Progress Differential Diagnosis: arrythmia, alcohol intoxication, CVA/stroke, electrolyte imbalance, hypoglycemia, intracranial Hem., intracranial mass/tumor, postural hypotension, seizure disorder, UTI/pyelo Diagnostic Imaging: Viewed by Me: CT Scan. Discussed w/RAD: CT Scan. Radiology Impression: PATIENT: ISABEL ROLDAN PRESENT AGE: 77 PATIENT ACCOUNT NO: [id number] : 41 LOCATION: [facility] ORDERING PHYSICIAN: Tristen BRANDT SERVICE DATE: 07/15/17 EXAM TYPE: CAT - CT HEAD WO IV CONTRAST EXAMINATION: CT HEAD WITHOUT CONTRAST CLINICAL INFORMATION: Confusion. COMPARISON: CT head dated 08/29/2016. TECHNIQUE: Contiguous axial imaging was performed from the skull base to vertex without intravenous administration of contrast. DLP: 612.60 mGy-cm FINDINGS: There is no evidence of acute intracranial hemorrhage or territorial infarction. No abnormal mass effect or midline shift is seen. Lamb to white matter differentiation is well preserved. No extra-axial fluid collections are identified. The ventricles are normal in size. There is mild to moderate microvascular ischemic disease. The osseous structures and soft tissues are normal. The mastoid air cells and visualized portions of the paranasal sinuses are well aerated. IMPRESSION: No acute intracranial pathology. Mild to moderate microvascular ischemic disease. DICTATED BY: Stevie You MD DATE/TIME DICTATED:07/15/171327 TRASHMAN:JUAN DAVID DATE/TIME TRANSCRIBED:07/15/171327 CONFIDENTIAL, DO NOT COPY WITHOUT APPROPRIATE AUTHORIZATION. <Electronically signed in Other Vendor System> SIGNED BY: Stevie You MD 07/15/17 1336 Initial ED EKG: normal sinus rhythm, rate (82), PVC (Tristen White) Plan of Care: Orders Procedure Date/time Status ETHANOL 07/15 1352 Complete URINALYSIS 07/15 1206 Complete TROPONIN LEVEL 07/15 1206 Complete COMPREHENSIVE METABOLIC PANEL 07/15 1206 Complete CBC WITHOUT DIFFERENTIAL 07/15 1206 Complete EKG 07/15 1206 Active Laboratory Tests 07/15/17 1605: Urine Color YEL, Urine Clarity CLEAR, Urine pH 7.0, Ur Specific [place] 1.010, Urine Protein NEG, Urine Ketones NEG, Urine Nitrite NEG, Urine Bilirubin NEG, Urine Urobilinogen 0.2, Ur Leukocyte Esterase NEG, Ur Microscopic EXAM NOT REQUIRED, Urine Hemoglobin NEG, Urine Glucose NEG 07/15/17 1352: Anion Gap 14, Estimated GFR > 60, BUN/Creatinine Ratio 16.0, Glucose 101 H, Calcium 8.7, Total Bilirubin 0.4, AST 68 H, ALT 48, Alkaline Phosphatase 91, Troponin I < 0.01, Total Protein 6.5, Albumin 3.9, Globulin 2.6, Albumin/ Globulin Ratio 1.5, CBC w Diff NO MAN DIFF REQ, RBC 4.67, MCV 92.7, MCH 30.9, RDW 15.0 H, MPV 7.4, Gran % 45.8, Lymphocytes % 36.7, Monocytes % 14.9 H, Eosinophils % 2.1, Basophils % 0.5, Absolute Granulocytes 1.4, Absolute Lymphocytes 1.1 L, Absolute Monocytes 0.5, Absolute Eosinophils 0.1, Absolute Basophils 0, PUBS MCHC 33.3, Serum Alcohol 183.0 07/15/17 1217: Serum Alcohol Cancelled (Francia MORENO,Jalil Garcia) Departure Departure Disposition: HOME OR SELF CARE Condition: Stable Clinical Impression Primary Impression: ETOH abuse Secondary Impressions: Confusion Referrals: Lauren MORENO,Dylan Garcia (PCP/Family) Additional Instructions: Follow-up with your primary care doctor. Return if any concerns worsening symptoms. Please go over all results of today's visit with your primary care doctor. Contact your primary care doctor to let them know you were here in the emergency room. There may be nonspecific findings which may not be related to your visit today here in the emergency room but may require further evaluation and chronic monitoring by your primary care doctor. If you had a laceration today the chance of foreign body always remains. You should follow-up with your primary care doctor for recheck in 3-5 days for a wound check. If you had an x-ray done there is a chance that a fracture could have been missed on initial read and you should follow-up with your primary care doctor for repeat x-rays if symptoms persist. If your blood pressure was elevated here in the emergency room please have rechecked by [facility] primary care doctor within the next 48. If you were prescribed a narcotic here in the emergency room or any type of controlled substances you're not allowed to drive while taking this medication or operate any type of heavy machinery. Narcotics can make you feel lightheaded dizziness nausea and can cause constipation. You may need to orange picker machine operator a stool softener. Thank you for choosing [facility] emergency room. Please return to the emergency room immediately if you have any other concerns worsening of symptoms. Departure Forms: Customer Survey General Discharge Information Comments 07/15/2017 5:07:11 PM Patient's etoh elevated. I Feel alcohol is related to her confusion. She has no focal neurological deficits. She is able to ambulate with no difficulty here. Case discussed and patient seen by Dr. Feldman. (Tristen White) PA/WET PRIMER POWDER BLENDER Co-Sign Statement Statement: ED Attending supervision documentation- [X] I saw and evaluated the patient. I have also reviewed all the pertinent lab results and diagnostic results. I agree with the findings and the plan of care as documented in the PA's/WET PRIMER POWDER BLENDER's documentation. pt presents for eval of confusion. exam is unremarkable. nonfocal neuro. [] I have reviewed the ED Record and agree with the PA's/WET PRIMER POWDER BLENDER's documentation. [] Additions or exceptions (if any) to the PAs/WET PRIMER POWDER BLENDER's note and plan are summarized below: [] (Francia MORENO,Jalil Garcia)
--- NOTE | 2017-07-15 13:36 | CT SCAN REPORT ---
EXAMINATION: CT HEAD WITHOUT CONTRAST CLINICAL INFORMATION: Confusion. COMPARISON: CT head dated 08/29/2016. TECHNIQUE: Contiguous axial imaging was performed from the skull base to vertex without intravenous administration of contrast. DLP: 612.60 mGy-cm FINDINGS: There is no evidence of acute intracranial hemorrhage or territorial infarction. No abnormal mass effect or midline shift is seen. Lamb to white matter differentiation is well preserved. No extra-axial fluid collections are identified. The ventricles are normal in size. There is mild to moderate microvascular ischemic disease. The osseous structures and soft tissues are normal. The mastoid air cells and visualized portions of the paranasal sinuses are well aerated. IMPRESSION: No acute intracranial pathology. Mild to moderate microvascular ischemic disease.
[2017-07-15 14:12] LABS: ABSOLUTE BASOPHIL COUNT 0 /CUMM (0.0-0.2); ABSOLUTE EOSINOPHIL COUNT 0.1 /CUMM (0.0-0.7); ABSOLUTE GRANULOCYTE CT 1.4 /CUMM (1.4-6.5); ABSOLUTE LYMPH COUNT 1.1 /CUMM (1.2-3.4); ABSOLUTE MONOCYTE COUNT 0.5 /CUMM (0.10-0.60); BASOPHIL % 0.5 % (0.0-2.0); EOSINOPHIL % 2.1 % (0-5); GRANULOCYTE % 45.8 % (42.2-75.2); HEMATOCRIT 43.2 % (37-47); MEAN CORPUSCULAR HGB 30.9 PG (27.0-31.0); MEAN CORPUSCULAR HGB CONC 33.3 G/DL (33.0-37.0); MEAN CORPUSCULAR VOLUME 92.7 FL (81.0-99.0); MEAN PLATELET VOLUME 7.4 FL (7.4-10.4); PLATELET COUNT 138 /CUMM (130-400); RED BLOOD CELL CT 4.67 /CUMM (4.20-5.40); WHITE BLOOD CELL COUNT 3.1 /CUMM (4.8-10.8)
[2017-07-15] MEDS ORDERED: DUEXIS 800-26.1 EACH PO (14:40)
[2017-07-15] MEDS ORDERED: GABAPENTIN300 M2 PO (14:41)
[2017-07-15] MEDS ORDERED: ESCITALOPRAM OX10 MG PO (14:41)
[2017-07-15 18:35] VITALS: BP 161/96
== END 2017-07-15 18:45 ==
LOC: ERH 12:02
PROVIDERS: Physician Assistant Medical
DX: R41.0 Disorientation, unspecified (principal); F10.10 Alcohol abuse, uncomplicated
CPT/HCPCS: 81003; 93005; 93010; G0480; J3101; J7508

== ENCOUNTER 2018-02-26 18:20 | Inpatient (IN) | payer OTHER, MEDICARE ==
[~2018-02-26] VITALS: Ht 152.4 cm; Wt 71.8 kg
[~2018-02-26 18:20] MED LIST changes: +DUEXIS 800-26.1 EACH PO; +GABAPENTIN300 M2 PO
[2018-02-26 18:52] LABS: ABSOLUTE BASOPHIL COUNT 0 /CUMM (0.0-0.2); ABSOLUTE EOSINOPHIL COUNT 0 /CUMM (0.0-0.7); ABSOLUTE LYMPH COUNT 1.5 /CUMM (1.2-3.4); BASOPHIL % 0.3 % (0.0-2.0); EOSINOPHIL % 0.4 % (0-5); GRANULOCYTE % 66.3 % (42.2-75.2); HEMATOCRIT 41.7 % (37-47); MEAN CORPUSCULAR HGB 32.3 PG (27.0-31.0); MEAN CORPUSCULAR HGB CONC 34.5 G/DL (33.0-37.0); MEAN CORPUSCULAR VOLUME 93.5 FL (81.0-99.0); MEAN PLATELET VOLUME 8.2 FL (7.4-10.4); PLATELET COUNT 157 /CUMM (130-400); RED BLOOD CELL CT 4.46 /CUMM (4.20-5.40); WHITE BLOOD CELL COUNT 7.6 /CUMM (4.8-10.8)
--- NOTE | 2018-02-26 19:00 | ED GENERAL ADULT ---
History of Present Illness General Chief Complaint: Syncope and Near-Syncope Stated Complaint: SYNCOPE EPISODE X 3 MINUTES AT [facility] Source: patient Exam Limitations: no limitations Vital Signs & Intake/Output Vital Signs & Intake/Output Vital Signs Date Time Temp Pulse Resp B/P B/P Pulse O2 O2 Flow FiO2 Mean Ox Delivery Rate 02/26 2326 98.7 80 18 148/87 100 Room Air 02/26 2229 Room Air 02/26 2100 86 18 115/68 Room Air 02/26 1829 Room Air 02/26 1823 98.1 89 18 104/59 96 Room Air ED Intake and Output 02/27 0000 02/26 1200 Intake Total 0 Output Total Balance 0 Intake, Oral 0 Patient 150 lb Weight Weight Estimated Measurement Method Allergies Coded Allergies: NO KNOWN ALLERGIES (05/22/16) Reconcile Medications Amlodipine Besylate/Benazepril (Lotrel 5-10 MG Capsule) 5 MG-10 MG CAPSULE 1 CAP PO DAILY BP (Reported) Ergocalciferol (Vitamin D2) (Vitamin D2) 50,000 UNIT CAPSULE 1 CAP PO Q 2 WEEKS SUPPLEMENT (Reported) Escitalopram Oxalate 10 MG TABLET 1 TAB PO DAILY DEPRESSION (Reported) Ezetimibe/Simvastatin (Vytorin 10-40 MG Tablet) 10 MG-40 MG TABLET 1 TAB PO DAILY CHOLESTEROL (Reported) Gabapentin 300 MG CAPSULE 1 CAP PO BID PAIN (Reported) Ibuprofen/Famotidine (Duexis 800-26.6 MG Tablet) 800 MG-26.6 MG TABLET 1 TAB PO BID PAIN (Reported) Metoprolol Succinate 100 MG TAB.ER.24H 1 TAB PO DAILY BP (Reported) Triage Note: PT BIBA FROM A [facility]. PER PT SHE HAD "NOT BEEN FEELING MYSELF DURING DINNER" AND HAD A WITNESSED ? SYNCOPAL EPISODE WHERE SHE WAS "NOT RESPONDING". PT DENIES RECOLLECTION OF EVENT. PER EMS BP WAS 80/50 ON ARRIVA. PT RECEIVED 500 CC'S OF NORMAL SALINE CHANGE OF ADDRESS CLERK. ARRIVES AWAKE AND ALERT AND SPEAKING IN FULL COMPLETE SENTENCES. RESPIRATIONS EVEN ANDNON LABORED. SKIN IS PINK, WARM AND DRY. Triage Nurses Notes Reviewed? yes Onset: Abrupt Duration: minute(s): Timing: recent history HPI: 02/26/18 This is a 77-year-old female who presents to the emergency department for syncope. The patient was at the [facility] eating dinner with her family and suddenly became unresponsive for several minutes. She denies any chest pain shortness of breath or fever. Mild headache. (Jalil Burton DO) Past History Travel History Traveled to [place] past 21 day No Medical History Any Pertinent Medical History? see below for history Neurological: migraine EENT: NONE Cardiovascular: hypertension, PALPITATIONS Respiratory: NONE Gastrointestinal: C. 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 No (Jalil Burton DO) Review of Systems Review of Systems Constitutional: Denies: fever. EENTM: Denies: visual changes. Respiratory: Denies: short of breath. Cardiovascular: Denies: chest pain. GI: Denies: abdominal pain. Genitourinary: Reports: no symptoms. Musculoskeletal: Reports: no symptoms. Skin: Reports: no symptoms. Neurological/Psychological: Reports: see HPI. Hematologic/Endocrine: Reports: no symptoms. Immunologic/Allergic: Reports: no symptoms. (Jalil Burton DO) Physical Exam Physical Exam General Appearance: no apparent distress, alert, awake, mild distress Head: atraumatic, normal appearance Eyes: Bilateral: normal appearance, PERRL, EOMI. Ears, Nose, Throat: normal pharynx, normal ENT inspection Neck: normal inspection, supple Respiratory: normal breath sounds, chest non-tender, no respiratory distress Cardiovascular: regular rate/rhythm Peripheral Pulses: 4+ radial (R), 4+ radial (L) Gastrointestinal: soft, non-tender Back: normal range of motion Extremities: normal inspection, normal range of motion Neurologic/Psych: no motor/sensory deficits, awake, alert, oriented x 3 Skin: intact, normal color, warm/dry Core Measures ACS in differential dx? Yes CVA/TIA Diagnosis: No Sepsis Present: No Sepsis Focused Exam Completed? No (Jalil Burton DO) Progress Differential Diagnoses I considered the following diagnoses in my evaluation of the patient: [EtOH intoxication, cardiogenic syncope, dysrhythmia, acute coronary syndrome, anemia, electrolyte derangement] Plan of Care: Orders Procedure Date/time Status Heart Healthy Diet 02/27 B Active TROPONIN LEVEL 02/27 0600 Active MAGNESIUM 02/27 06 Active CBC WITHOUT DIFFERENTIAL 02/27 06 Active BASIC ELECTROLYTES PLUS BUN&CR 02/27 06 Active EKG 02/27 0600 Active CULTURE,URINE 02/27 137 Active URINE LYTES, SPOT 02/27 137 Active URINALYSIS 02/27 137 Active Pathway - chart 02/27 0049 Active House Staff 02/27 0049 Active Patient Data 02/27 0044 Active VTE Mechanical Prophylaxis 02/27 UNK Active Telemetry/On Air Personality 02/27 UNK Active Intake & Output 02/27 UNK Active Patient Data 02/26 2338 Active Saline Lock 02/[address] in observation 02/27 2336 Active Misc Message 02/27 2336 Active ED Holding Orders 02/26 233 Active Vital Signs 02/26 233 Active Code Status 02/26 233 Active TROPONIN LEVEL 02/26 2130 Complete EKG 02/26 2130 Active Add-on Test (ER Only) 02/26 1848 Active Add-on Test (ER Only) 02/26 1847 Active LACTIC ACID 02/26 184 Complete ETHANOL 02/26 184 Complete D-DIMER 02/26 1845 Complete TROPONIN LEVEL 02/26 1843 Complete COMPREHENSIVE METABOLIC PANEL 02/26 1843 Complete CBC WITHOUT DIFFERENTIAL 02/26 1843 Complete EKG 02/26 1822 Active Current Medications Sig/Valarie Start time Last Medication Dose Stop Time Status Admin Atorvastatin Calcium 20 MG 1700 02/27 1700 AC (Lipitor) Amlodipine Besylate 5 MG DAILY 02/27 09 AC (Norvasc) Escitalopram Oxalate 10 MG DAILY 02/27 09 AC (Lexapro) Gabapentin 300 MG BID 02/27 09 AC (Neurontin) Metoprolol Tartrate 50 MG BID 02/27 0900 AC (Lopressor) Heparin Sodium 5,000 UNIT Q8 02/27 0600 AC (Porcine) Acetaminophen 650 MG Q6P PRN 02/27 0100 AC (Tylenol) Potassium Chloride 40 MEQ .Q10H 02/27 0045 CAN (KCl 40MEQ in NS 1000ML) Sodium Chloride 1,000 ML (Normal Saline 0.9%) Potassium Chloride 40 MEQ Q10H 02/27 0045 AC (KCl 40MEQ in NS 1000ML) Sodium Chloride 1,000 ML (Normal Saline 0.9%) Laboratory Tests 02/26/18 2140: Troponin I < 0.01 02/26/18 1845: Anion Gap 14, Estimated GFR 24 L, BUN/Creatinine Ratio 15.0, Glucose 136 H, Lactic Acid 1.8, Calcium 9.3, Total Bilirubin 0.7, AST 76 H, ALT 56 H, Alkaline Phosphatase 111, Troponin I < 0.01, Total Protein 6.6, Albumin 3.9, Globulin 2.7, Albumin/Globulin Ratio 1.4, D-Dimer High Sensitivty 631 H, CBC w Diff NO MAN DIFF REQ, RBC 4.46, MCV 93.5, MCH 32.3 H, MCHC 34.5, RDW 13.0, MPV 8.2, Gran % 66.3, Lymphocytes % 20.2 L, Monocytes % 12.8 H, Eosinophils % 0.4, Basophils % 0.3, Absolute Granulocytes 5.0, Absolute Lymphocytes 1.5, Absolute Monocytes 1.0 H, Absolute Eosinophils 0, Absolute Basophils 0, Serum Alcohol < 10.0 Microbiology 02/27 137 URINE ROUT: Urine Culture - ORD Pre-Hospital EKG: NSR Initial ED EKG: NSR, no ST T wave changes (Jalil Burton DO) Differential Diagnoses I considered the following diagnoses in my evaluation of the patient: Repeat EKG: unchanged (Everardo MORENO,Lux Casas) Departure Departure Disposition: STILL A PATIENT Condition: Stable Clinical Impression Primary Impression: Syncope Referrals: Lauren MORENO,Dylan Garcia (PCP/Family) Departure Forms: Customer Survey General Discharge Information Comments 02/26/18 7:15 PM The patient was treated with IV fluids and placed on a rn cardiac rehab. Labs were sent. The patient was signed out to Dr. Mcgee at 7 PM (Jalil Burton DO) Departure Comments 02/26/18, 23:09... discussed with dr. gaston, decorator store, who reviewed ekg... pt had unusual story, merits observation. Observation Note Spoke With: Kalyn MORENO,Jose Velarde Patient In: Non-ED OBS Care Area Rationale for Observation: My rational for observation is as follows . pt with syncope of uncertain etiology. given risk factors, merits observation, cards eval in AM. Due to elevated gfr, unable to obtain ct angio... will defer decision regarding heparin to hospitalist team. (Everardo MORENO,Lux Casas) Critical Care Note Critical Care Note Critical Care Time: 30-74 min (Jalil Burton DO)
--- NOTE | 2018-02-26 19:18 | CT SCAN REPORT ---
EXAMINATION: CT HEAD WITHOUT CONTRAST CLINICAL INFORMATION: Altered mental status COMPARISON: 07/15/2017 TECHNIQUE: Contiguous axial imaging was performed from the skull base to vertex without intravenous administration of contrast. FINDINGS: There is no evidence of acute intracranial hemorrhage or territorial infarction. No abnormal mass effect or midline shift is seen. Lamb to white matter differentiation is well preserved. No extra-axial fluid collections are identified. There is symmetric, concordant prominence of the ventricles and sulci consistent with age-appropriate diffuse parenchymal volume loss. Again seen is mild periventricular and subcortical white matter hypodensity, nonspecific but most likely attributable to chronic age-appropriate microvascular white matter ischemic changes. Remote lacunar infarcts are seen in the left lentiform nuclei. There is hyperostosis frontalis; otherwise, the osseous structures and soft tissues are normal. The mastoid air cells and visualized portions of the paranasal sinuses are well aerated. IMPRESSION: No acute intracranial pathology. Age-appropriate diffuse parenchymal volume loss and chronic microvascular white matter ischemic changes.
--- NOTE | 2018-02-26 19:24 | RADIOLOGY REPORT ---
EXAMINATION: XR PORTABLE CHEST CLINICAL INFORMATION: Altered mental status COMPARISON: 08/29/2016 TECHNIQUE: Portable frontal view of the chest was obtained. FINDINGS: Lungs are clear. No focal consolidation or mass. Normal pulmonary vascularity. No pleural effusion or pneumothorax. Tortuous aorta. Normal heart size. S-shaped thoracolumbar scoliosis. IMPRESSION: No acute pulmonary disease.
--- NOTE | 2018-02-27 00:14 | History & Physical ---
Panda Nguyen 02/27/18 0013: General Information and HPI MD Statement: I have seen and personally examined ISABEL ROLDAN and documented this H&P. The patient is a 77 year old F who presented with a patient stated chief complaint of SYNCOPAL EPISODE. Source of Information: patient, old records Exam Limitations: no limitations History of Present Illness: 77 year old female PMH of HTN, HLD, migraines and OA presents to the ED for a syncopal episode. She was out with her sister and son at a restaurant. During the meal she lost consciousness, coming to when the stretcher was next to her. She denies hitting her head. No prodromal symptoms. She denied diaphoresis, presyncope, lightheadedness, nausea, chest pain, palpitations and dyspnea. She did not have confusion following the event. No bowel or bladder incontinence. No reported seizure like activity. Never experienced this beofre. In the ED vital signs were normal, exam was benign. She recieve 2L NS. Her head CT was negative. D-dimer was elevated to 631. Creatinin of 2.0, normal baseline less than a month ago. Negative troponin. Reportedly patient has been taking large doses of NSAIDS. Patient placed in observation on telemetry for syncope evaluation. Allergies/Medications Allergies: Coded Allergies: NO KNOWN ALLERGIES (05/22/16) Home Med list Amlodipine Besylate/Benazepril (Lotrel 5-10 MG Capsule) 5 MG-10 MG CAPSULE 1 CAP PO DAILY BP (Reported) Ergocalciferol (Vitamin D2) (Vitamin D2) 50,000 UNIT CAPSULE 1 CAP PO Q 2 WEEKS SUPPLEMENT (Reported) Escitalopram Oxalate 10 MG TABLET 1 TAB PO DAILY DEPRESSION (Reported) Ezetimibe/Simvastatin (Vytorin 10-40 MG Tablet) 10 MG-40 MG TABLET 1 TAB PO DAILY CHOLESTEROL (Reported) Gabapentin 300 MG CAPSULE 1 CAP PO BID PAIN (Reported) Ibuprofen/Famotidine (Duexis 800-26.6 MG Tablet) 800 MG-26.6 MG TABLET 1 TAB PO BID PAIN (Reported) Metoprolol Succinate 100 MG TAB.ER.24H 1 TAB PO DAILY BP (Reported) Compliance With Home Meds: GOOD Past History Travel History Traveled to [place] past 21 day No Medical History Neurological: migraine EENT: NONE Cardiovascular: hypertension, PALPITATIONS Respiratory: NONE Gastrointestinal: C. 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 self Services at Home: None Primary Language: Afghan ETOH Use: occasional use Illicit Drug Use: denies illicit drug use Functional Ability ADLs Independent: dressing, eating, toileting, bathing. Ambulation: independent IADLs Independent: shopping, housework, finances, food prep, telephone, transportation , medication admin. Review of Systems Review of Systems Constitutional: Reports: see HPI. Exam & Diagnostic Data Last 24 Hrs of Vital Signs/I&O Vital Signs Date Time Temp Pulse Resp B/P B/P Pulse O2 O2 Flow FiO2 Mean Ox Delivery Rate 02/27 2116 77 156/94 02/27 1423 97.8 68 20 128/90 95 Room Air 02/27 0925 84 148/80 02/27 0800 Room Air 02/27 0719 98.9 82 18 122/80 99 Room Air 02/27 0214 98.1 84 18 140/100 97 Room Air 02/27 0152 98.2 78 18 146/76 99 Room Air 02/26 2326 98.7 80 18 148/87 100 Room Air 02/26 2229 Room Air Intake & Output 02/27 1600 02/27 0800 02/27 0000 Intake Total 800 220 0 Output Total Balance 800 220 0 Intake, IV 400 Intake, Oral 400 220 0 Number 2 Bowel Movements Patient 158 lb 150 lb Weight Weight Estimated Measurement Method Physical Exam General Appearance Alert, Oriented X3, Cooperative, No Acute Distress Skin No Rashes, No Breakdown, No Significant Lesion Skin Temp/Moisture Exam: Warm/Dry HEENT Atraumatic, PERRLA, EOMI, Mucous Membr. moist/pink Neck Supple, No JVD, No thryomegaly Cardiovascular Regular Rate, Normal S1, Normal S2, No Murmurs, Gallops, Rubs Lungs Clear to Auscultation, Normal Air Movement Abdomen Normal Bowel Sounds, Soft, No Tenderness, No Hepatospenomegaly, No Masses Neurological Normal Speech, Strength at 5/5 X4 Ext, Normal Tone, Sensation Intact Extremities No Clubbing, No Cyanosis, No Edema Last 24 Hrs of Labs/Farooq: Laboratory Tests 02/27/18 1800: Sodium Cancelled, Potassium Cancelled, Chloride Cancelled, Carbon Dioxide Cancelled, Anion Gap Cancelled, BUN Cancelled, Creatinine Cancelled, BUN/ Creatinine Ratio Cancelled 02/27/18 0707: Anion Gap 5, Estimated GFR > 60, BUN/Creatinine Ratio 25.6 H, Magnesium 1.6, Troponin I < 0.01, CBC w Diff NO MAN DIFF REQ, RBC 3.97 L, MCV 93.9, MCH 32.3 H, MCHC 34.4, RDW 13.3, MPV 8.2, Gran % 61.3, Lymphocytes % 24.6, Monocytes % 12.8 H, Eosinophils % 1.0, Basophils % 0.3, Absolute Granulocytes 2.4, Absolute Lymphocytes 0.9 L, Absolute Monocytes 0.5, Absolute Eosinophils 0, Absolute Basophils 0 02/27/18 0159: Urinalysis LIGHT H, Urine Color YEL, Urine Clarity CLEAR, Urine pH 6.0, Ur Specific [place] 1.015, Urine Protein NEG, Urine Ketones NEG, Urine Nitrite NEG, Urine Bilirubin NEG, Urine Urobilinogen 0.2, Ur Leukocyte Esterase SMALL H, Ur Microscopic SEDIMENT EXAMINED, Urine WBC 5-10 H, Ur Epithelial Cells MOD H, Urine Bacteria FEW H, Hyaline Casts 3-5 H, Urine Mucus FEW, Urine Hemoglobin NEG, Urine Glucose NEG 02/27/18 0159: Ur Random Creatinine 83.9, Ur Random Sodium 34, Ur Random Potassium 41.2, Fraction Sodium Excret 0.6 Microbiology 02/27 159 URINE ROUT: Urine Culture - RECD Diagnostic Data EKG Results Normal sinus rhythm CXR Results No acute pulmonary disease Other Results Head CT no acute intracranial pathology Assessment/Plan Assessment: 77 year old female PMH of HTN, HLD, migraines and OA presents to the ED for a syncopal episode. Problem list/plan: Syncope: -Pt has hx of palpitations,previously evaluated by Dr. Worthington -Cardiology consultation -Serial troponins and EKG -Echo and carotid dopplers -orthostatic VS ALBERTO -Likely NSAID and ARB use, possible dehydration component -Pt also reports incomplete bladder emptying -Check post void residual, renal ultrasound -Trend renal function -Hold ARB -Check urine lytes and FeNA Hypokalemia -Repleted in IV fluids -Repeat serum K HTN -continue metoprolol and amlodipine -Hold ARB -Monitor BP HLD -continue statin therapy DVT prophylaxis: Heparin SCC Heart healthy diet Patient is full code As Ranked By This Provider Problem List: 1. Syncope 2. ALBERTO (acute kidney injury) 3. Diverticulitis 4. Hyperlipidemia Core Measures/Misc (03/20) Acute Coronary Syndrome ACS Diagnosis: No Congestive Heart Failure Congestive Heart Failure Diagnosis No Cerebrovascular Accident CVA/TIA Diagnosis: No VTE (View Protocol) VTE Risk Factors No risk factors No Mechanical VTE Prophylaxis d/t N/A MechProphylax Ordered No VTE Pharm Prophylaxis d/t NA PharmProphylax ordered Sepsis (View protocol) Sepsis Present: No If YES complete Sepsis Event Note If YES complete Sepsis Event Note Herb Chilel MD 02/27/18 0122: Core Measures/Misc (03/20) Sepsis (View protocol) If YES complete Sepsis Event Note If YES complete Sepsis Event Note Resident Review Statement Resident Statement: examined this patient, discussed with electrical intern, agreed with electrical intern, reviewed EMR data (avail) Other Findings: 77 year old female with PMH of HTN, HLD, migraines, and osteoarthritis presented to ED after a syncopal episode. She was out with her family, sister and her son. Nursing Home through the meal she lost memory of what had occurred. The next thing she remembered she was still sitting in the [place]orm[place] of the restaurant with a stretcher next to her. She never fell or hit her head. She had a loss of consciousness without prodromal symptoms. She denied feeling diaphoretic, presyncopal, lightheaded, nauseous, warm/flushed, chest pain, palpitations, or dyspnea. She denied any confusion after the event. Her sister told her that her eyes suddenly closed, she had some involuntary jaw movements, and became unresponsive. She knew that something had happened but wasn't sure what occurred. She had no bowel or bladder incontinence. There were no reported shaking or jerking movements. She has never had an experience like this before. Her blood pressure in the field was 80/50 and she recieved a 500cc fluid bolus prior to arrival. In the ED he vital signs were normal and her cardiovascular and neurological physical exams were benign. She recieved an additional two liters of normal saline and had a negative noncontrast head CT. Her labs showed a serum potassium of 3.3, BUN of 30, and creatinine of 2.0 with a previously normal baseline. She had a mild transaminitis AST 76 and ALT 56. Troponins were negative x 2 sets and d-Dimer was elevated to 631. CTA chest was deferred by ED providers given acute kidney injury. She was in the ED 07/2017 with alcohol intoxication and altered mental status but no alcohol involved in today' s events. She has seen Dr. Jagdish Worthington in the past for palpitations with a reportedly negative echocardiogram and stress testing. She may have had these tests for preoperative evaluation of a right total knee replacement. She is a poor historian. She has been taking NSAIDs ibuprofen and naproxen for months but having difficulty quantifying, approximately 1200mg ibuprofen daily. She also takes an ARB for hypertension. The patient was placed in observation on telemetry for syncope evaluation. Syncope: Unclear etiology, was hypotensive in the field and received IVFs Patient has a history of palpitations, previously evaluated by Dr. Jagdish Chowdary Without prodromal symptoms, arrhythmia is possible, elevated d-dimer possible PE Not further evaluated with CTA because of ALBERTO, consider LE doppler Cardiology consultation Check serial troponins and EKGs Check echocardiogram and carotid dopplers to assess for structural heart disease/stenosis Check orthostatic vital signs, continue IVFs Acute kidney injury: Likely a combination of NSAIDs and ARB and some component of dehydration Patient also reports incomplete bladder emptying Check post void residual, consider renal ultrasound if no improvement Trend renal function Avoid nephrotoxins Hold ARB Check urine electrolytes and FeNa Hypokalemia: Repleted orally parenterally in intravenous fluids Repeat serum potassium with morning labs HTN: Continue metoprolol and amlodipine Hold ARB Monitor blood pressure HLD: Continue statin therapy Heart healthy diet DVT ppx-heparin scc Full code Jose Mccain MD 02/27/18 0557: Core Measures/Misc (03/20) Sepsis (View protocol) If YES complete Sepsis Event Note If YES complete Sepsis Event Note Attending MD Review Statement Attending Statement Attending MD Statement: examined this patient, discuss w/resident/PA/HARNESS TIER, agreed w/resident/PA/HARNESS TIER Attending Assessment/Plan: 77 year-old female with syncopal episode while at a restaurant this evening, according to her companions was 'unresponsive but not cyanotic'. Stable and back to usual mentation here in the ER. No seizure-like activity. EKG was non- specific. Troponin negative. ER workup most remarkable for acute kidney injury of unclear etiology- no new medications to consider- but accompanied by a historical high in her BUN makes dehydration a leading candidate. Elevated d- dimer could be followed up with nuclear medicine study in the AM; I don't believe that PE is likely at all in this clinical scenario with another clear cause (dehydration) of her syncope and her stability in her vital signs here. Her blood pressure has responded well to IV hydration alone. Place in observation for evaluation for syncope. Would continue with IV fluids, at 150mL per hour, over the course of the night. Repeat cardiac enzymes and telemetry monitoring. Cardiology has been consulted already in the ER. Hold her ARB which undoubtedly is promoting the increased creatinine in this setting. Would hold on anti-coagulation. Adair Mccain MD
[2018-02-27 02:14] VITALS: BP 140/100
[2018-02-27 07:19] VITALS: BP 122/80; BP 140/80
--- NOTE | 2018-02-27 07:19 | PN-Observation ---
Irvin Gorman 02/27/18 0719: Assessment/Plan Medical Assessment: 77 year old female with PMH of HTN, HLD, migraines, and osteoarthritis presented to ED after a syncopal episode. Syncope: Cardiology consulted, - to rule out cardiac causes Check serial troponins negative f/u orthostatic vital signs- negative manage electrolytes Nutritional consult may be considered before discharge DVT - D Dimer was elevated and Doppler LE came positive for DVT CTA ordered Acute kidney injury: Likely a combination of NSAIDs and ARB and some component of dehydration Check post void residual, consider renal ultrasound if no improvement Trend renal function Avoid nephrotoxins Hold ARB urine electrolytes and FeNa- normal Hypokalemia: Repleted orally parenterally in intravenous fluids and 40 M eq given PO f/u K and mG HTN: Continue metoprolol and amlodipine Hold ARB Monitor blood pressure HLD: Continue statin therapy Heart healthy diet DVT ppx-heparin scc Full code Problem List: 1. Syncope DVT/Prophylaxis: pharmacological Subjective Follow-up For: Syncope Complaints: no complaints Tele-Events Since Last Visit: No significant telemetry events noted Subjective: She was examined bedside lying down. She was doing better today and did not have any similar events as yesterday. no history of palpitations, dizziness, focal neurological deficits, shortness of breath noted. Review of Systems Constitutional: Denies: chills, diaphoresis, fever, malaise, weakness. Cardiovascular: Denies: chest pain, edema, orthopena, palpitations, peripheral edema, syncope. Respiratory: Denies: cough, hemoptysis, orthopnea, short of breath, sputum production, stridor, wheezing. Gastrointestinal: Reports: abdominal pain. Denies: constipation, vomiting. Genitourinary: Denies: discharge, dysuria, frequency, hematuria, hesitation, nocturia, pain. Musculoskeletal: Reports: joint pain, joint swelling. Objective Last 24 Hrs of Vital Signs/I&O Vital Signs Date Time Temp Pulse Resp B/P B/P Pulse O2 O2 Flow FiO2 Mean Ox Delivery Rate 02/27 1423 97.8 68 20 128/90 95 Room Air 02/27 0925 84 148/80 02/27 0800 Room Air 02/27 0719 98.9 82 18 122/80 99 Room Air 02/27 0214 98.1 84 18 140/100 97 Room Air 02/27 0152 98.2 78 18 146/76 99 Room Air 02/26 2326 98.7 80 18 148/87 100 Room Air 02/26 2229 Room Air 02/26 2100 86 18 115/68 Room Air Intake & Output 02/27 1600 02/27 0800 02/27 0000 Intake Total 800 220 0 Output Total Balance 800 220 0 Intake, IV 400 Intake, Oral 400 220 0 Number 2 Bowel Movements Patient 158 lb 150 lb Weight Weight Estimated Measurement Method Physical Exam General Appearance: Alert, Oriented X3, Cooperative, No Acute Distress Cardiovascular: Normal S1, Normal S2, No Murmurs Lungs: Normal Air Movement Abdomen: Soft, No Tenderness Neurological: Normal Speech, Strength at 5/5 X4 Ext, Normal Tone, Sensation Intact, Cranial Nerves 3-12 NL Extremities: swelling in Gurmeet Ann 02/27/18 1447: Attending MD Review Statement Attending Statement Attending MD Statement: examined this patient, discuss w/resident/PA/[employer]OR [employer], agreed w/resident/PA/[employer] PROF[employer]OR [employer]ORY, reviewed EMR data (avail), discussed w/case mgmt Attending Assessment/Plan: Syncopal episode - with low bp in field per EMS records. Pt in ER found to be in ALBERTO which now has resolved. Pt was using NSAIDS at home . PT consult and we will see how she does and if she does ok with PT we can get her out today. Pt was recently admitted about 2 weeks ago for dehydration. I encouraged pt to EAT and drink better. d/w pt and pts sister at bedside the care plan.
[2018-02-27 08:14] LABS: ABSOLUTE BASOPHIL COUNT 0 /CUMM (0.0-0.2); ABSOLUTE EOSINOPHIL COUNT 0 /CUMM (0.0-0.7); ABSOLUTE GRANULOCYTE CT 2.4 /CUMM (1.4-6.5); ABSOLUTE LYMPH COUNT 0.9 /CUMM (1.2-3.4); BASOPHIL % 0.3 % (0.0-2.0); RED BLOOD CELL CT 3.97 /CUMM (4.20-5.40)
[2018-02-27 08:36] LABS: ABSOLUTE MONOCYTE COUNT 0.5 /CUMM (0.10-0.60); GRANULOCYTE % 61.3 % (42.2-75.2); HEMATOCRIT 37.3 % (37-47); MEAN CORPUSCULAR HGB 32.3 PG (27.0-31.0); MEAN CORPUSCULAR HGB CONC 34.4 G/DL (33.0-37.0); MEAN CORPUSCULAR VOLUME 93.9 FL (81.0-99.0); MEAN PLATELET VOLUME 8.2 FL (7.4-10.4); RBC DISTRIBUTION WIDTH 13.3 % (11.5-14.5); WHITE BLOOD CELL COUNT 3.8 /CUMM (4.8-10.8)
[2018-02-27 09:25] VITALS: BP 148/80
[2018-02-27 10:19] LABS: PLATELET COUNT 106 /CUMM (130-400)
--- NOTE | 2018-02-27 12:32 | Cons- Cardiology ---
General Information and HPI Consulting Request Date of Consult: 02/27/18 Requested By: Jose Mccain MD Reason for Consult: Loss of consciousness Source of Information: patient, family, old records History of Present Illness: This is a 77-year-old female with a past medical history of hypertension and hyperlipidemia who presents to [facility] after a transient episode of loss of consciousness. The patient does not remember the episode well but her family member was able to provide some history. They were eating at a restaurant when her family member noted she was sitting in her chair with decreased responsiveness and not following commands. They denied any evidence of obvious seizure activity or incontinence. Prior to this the patient was not complaining of any new symptoms. The patient remembers waking up on the stretcher and today feels within normal limits. Prior to this the patient has noted that she has not been eating well due to decreased appetite. She does not remember any recent episodes of palpitations, chest pain, dyspnea, or slurring of speech. She denies any other recent episodes of loss of consciousness. She reports she may have had one remote episode in the past but does not remember the details well. She was found to have acute kidney injury here which improved with IV fluids. She does report some episodes of "dry heaves" at times but denies associated diarrhea. Allergies/Medications Allergies: Coded Allergies: NO KNOWN ALLERGIES (05/22/16) Home Med List: Amlodipine Besylate/Benazepril (Lotrel 5-10 MG Capsule) 5 MG-10 MG CAPSULE 1 CAP PO DAILY BP (Reported) Ergocalciferol (Vitamin D2) (Vitamin D2) 50,000 UNIT CAPSULE 1 CAP PO Q 2 WEEKS SUPPLEMENT (Reported) Escitalopram Oxalate 10 MG TABLET 1 TAB PO DAILY DEPRESSION (Reported) Ezetimibe/Simvastatin (Vytorin 10-40 MG Tablet) 10 MG-40 MG TABLET 1 TAB PO DAILY CHOLESTEROL (Reported) Gabapentin 300 MG CAPSULE 1 CAP PO BID PAIN (Reported) Ibuprofen/Famotidine (Duexis 800-26.6 MG Tablet) 800 MG-26.6 MG TABLET 1 TAB PO BID PAIN (Reported) Metoprolol Succinate 100 MG TAB.ER.24H 1 TAB PO DAILY BP (Reported) Current Medications: Current Medications Sig/Valarie Start time Last Medication Dose Route Stop Time Status Admin Acetaminophen 650 MG Q6P PRN 02/27 0100 AC 02/27 PO 0936 Alprazolam 0.25 MG ONCE ONE 02/27 0245 DC 02/27 PO 02/27 0246 0259 Alprazolam 0 .STK-MED ONE 02/27 0236 DC PO Amlodipine Besylate 5 MG DAILY 02/27 0900 AC 02/27 PO 0929 Atorvastatin Calcium 20 MG 1700 02/27 1700 AC PO Escitalopram Oxalate 10 MG DAILY 02/27 0900 AC 02/27 PO 0929 Gabapentin 300 MG BID 02/27 0900 AC 02/27 PO 0929 Heparin Sodium 5,000 UNIT Q8 02/27 0600 AC 02/27 (Porcine) SC 0521 Metoprolol Tartrate 50 MG BID 02/27 0900 AC 02/27 PO 0929 Potassium Chloride 40 MEQ ONCE ONE 02/27 0645 DC 02/27 PO 02/27 0646 0930 Potassium Chloride 40 MEQ .Q10H 02/27 0045 CAN Sodium Chloride 1,000 ML IV Potassium Chloride 40 MEQ Q10H 02/27 0045 DC 02/27 Sodium Chloride 1,000 ML IV 02/27 1044 0837 Sodium Chloride 1,000 ML Q20H 02/27 0830 AC IV Sodium Chloride 1,000 ML BOLUS ONE 02/26 2115 DC 02/26 IV 02/26 2214 2138 Sodium Chloride 1,000 ML BOLUS ONE 02/26 1900 DC 02/26 IV 02/26 1959 1923 Review of Systems Review of Systems: Review of systems as per HPI. The remainder of a 10 point review of systems was reviewed and was otherwise negative. Past History Travel History Traveled to [place] past 21 day No Medical History Blood Transfusion Hx: No Neurological: migraine EENT: NONE Cardiovascular: hypertension, PALPITATIONS Respiratory: NONE Gastrointestinal: C. DIFF Hepatic: NONE Renal: NONE Musculoskeletal: osteoarthritis Psychiatric: NONE Endocrine: NONE Blood Disorders: NONE Cancer(s): NONE KEYLINER/Reproductive: NONE Surgical History Surgical History: knee replacement Psychosocial History Services at Home: None Smoking Status: Former Smoker Exam & Diagnostic Data Vital Signs and I&O Vital Signs Date Time Temp Pulse Resp B/P B/P Pulse O2 O2 Flow FiO2 Mean Ox Delivery Rate 02/27 0925 84 148/80 02/27 0800 Room Air 02/27 0719 98.9 82 18 122/80 99 Room Air 02/27 0214 98.1 84 18 140/100 97 Room Air 02/27 0152 98.2 78 18 146/76 99 Room Air 02/26 2326 98.7 80 18 148/87 100 Room Air 02/26 2229 Room Air 02/26 2100 86 18 115/68 Room Air 02/26 1829 Room Air 02/26 1823 98.1 89 18 104/59 96 Room Air Intake & Output 02/27 0800 02/27 0000 02/26 1600 02/26 0800 02/26 0000 Intake Total 220 0 Output Total Balance 220 0 Intake, Oral 220 0 Patient 158 lb 150 lb Weight Weight Estimated Measurement Method Physical Exam: General: no apparent distress. Alert. Eyes: No obvious scleral icterus. HEENT: No jugular venous distention or abnormal jugular venous pulsations. Cardiovascular: Normal intensity S1/S2. PMI not grossly displaced. Respiratory: Lungs clear to auscultation bilaterally. Abdomen: Soft, nontender with no guarding or rebound tenderness. Musculoskeletal: No clubbing or cyanosis noted Skin: warm Neurologic: No gross focal deficits noted. Labs/Farooq Results: Laboratory Tests 02/27 02/27 0707 0159 Chemistry Sodium (137 - 145 mmol/L) 137 Potassium (3.5 - 5.1 mmol/L) 3.1 L Chloride (98 - 107 mmol/L) 106 Carbon Dioxide (22 - 30 mmol/L) 26 Anion Gap (5 - 16) 5 BUN (7 - 17 mg/dL) 23 H Creatinine (0.5 - 1.0 mg/dL) 0.9 Estimated GFR (>60 ml/min) > 60 BUN/Creatinine Ratio (7 - 25 %) 25.6 H Magnesium (1.6 - 2.3 mg/dL) 1.6 Troponin I (< 0.11 ng/ml) < 0.01 Hematology CBC w Diff NO MAN DIFF REQ WBC (4.8 - 10.8 /CUMM) 3.8 L RBC (4.20 - 5.40 /CUMM) 3.97 L Hgb (12.0 - 16.0 G/DL) 12.8 Hct (37 - 47 %) 37.3 MCV (81.0 - 99.0 FL) 93.9 MCH (27.0 - 31.0 PG) 32.3 H MCHC (33.0 - 37.0 G/DL) 34.4 RDW (11.5 - 14.5 %) 13.3 Plt Count (130 - 400 /CUMM) 106 L MPV (7.4 - 10.4 FL) 8.2 Gran % (42.2 - 75.2 %) 61.3 Lymphocytes % (20.5 - 51.1 %) 24.6 Monocytes % (1.7 - 9.3 %) 12.8 H Eosinophils % (0 - 5 %) 1.0 Basophils % (0.0 - 2.0 %) 0.3 Absolute Granulocytes (1.4 - 6.5 /CUMM) 2.4 Absolute Lymphocytes (1.2 - 3.4 /CUMM) 0.9 L Absolute Monocytes (0.10 - 0.60 /CUMM) 0.5 Absolute Eosinophils (0.0 - 0.7 /CUMM) 0 Absolute Basophils (0.0 - 0.2 /CUMM) 0 Urines Urinalysis LIGHT H Urine Color (YEL,AMB,STR) YEL Urine Clarity (CLEAR) CLEAR Urine pH (5.0 - 8.0) 6.0 Ur Specific Ramer (1.001 - 1.035) 1.015 Urine Protein (NEG,<30 MG/DL) NEG Urine Ketones (NEG) NEG Urine Nitrite (NEG) NEG Urine Bilirubin (NEG) NEG Urine Urobilinogen (0.1 - 1.0 EU/dl) 0.2 Ur Leukocyte Esterase (NEG) SMALL H Ur Microscopic SEDIMENT EXAMINED Urine WBC (0 - 2 /HPF) 5-10 H Ur Epithelial Cells (NONE,FEW) MOD H Urine Bacteria (NEG/NONE) FEW H Hyaline Casts (0/LPF) 3-5 H Urine Mucus (FEW,NONE) FEW Urine Hemoglobin (NEG) NEG Urine Glucose (N MG/DL) NEG 02/27 02/26 02/26 0159 2140 1845 Chemistry Sodium (137 - 145 mmol/L) 134 L Potassium (3.5 - 5.1 mmol/L) 3.3 L Chloride (98 - 107 mmol/L) 93 L Carbon Dioxide (22 - 30 mmol/L) 27 Anion Gap (5 - 16) 14 BUN (7 - 17 mg/dL) 30 H Creatinine (0.5 - 1.0 mg/dL) 2.0 H Estimated GFR (>60 ml/min) 24 L BUN/Creatinine Ratio (7 - 25 %) 15.0 Glucose (65 - 99 mg/dL) 136 H Lactic Acid (0.7 - 2.1 mmol/L) 1.8 Calcium (8.4 - 10.2 mg/dL) 9.3 Total Bilirubin (0.2 - 1.3 mg/dL) 0.7 AST (14 - 36 U/L) 76 H ALT (9 - 52 U/L) 56 H Alkaline Phosphatase (<127 U/L) 111 Troponin I (< 0.11 ng/ml) < 0.01 < 0.01 Total Protein (6.3 - 8.2 g/dL) 6.6 Albumin (3.5 - 5.0 g/dL) 3.9 Globulin (1.9 - 4.2 gm/dL) 2.7 Albumin/Globulin Ratio (1.1 - 2.2 %) 1.4 Coagulation D-Dimer High Sensitivty (0 - 243 ng/ml) 631 H Hematology CBC w Diff NO MAN DIFF REQ WBC (4.8 - 10.8 /CUMM) 7.6 RBC (4.20 - 5.40 /CUMM) 4.46 Hgb (12.0 - 16.0 G/DL) 14.4 Hct (37 - 47 %) 41.7 MCV (81.0 - 99.0 FL) 93.5 MCH (27.0 - 31.0 PG) 32.3 H MCHC (33.0 - 37.0 G/DL) 34.5 RDW (11.5 - 14.5 %) 13.0 Plt Count (130 - 400 /CUMM) 157 MPV (7.4 - 10.4 FL) 8.2 Gran % (42.2 - 75.2 %) 66.3 Lymphocytes % (20.5 - 51.1 %) 20.2 L Monocytes % (1.7 - 9.3 %) 12.8 H Eosinophils % (0 - 5 %) 0.4 Basophils % (0.0 - 2.0 %) 0.3 Absolute Granulocytes (1.4 - 6.5 /CUMM) 5.0 Absolute Lymphocytes (1.2 - 3.4 /CUMM) 1.5 Absolute Monocytes (0.10 - 0.60 /CUMM) 1.0 H Absolute Eosinophils (0.0 - 0.7 /CUMM) 0 Absolute Basophils (0.0 - 0.2 /CUMM) 0 Toxicology Serum Alcohol (<10 MG/DL) < 10.0 Urines Ur Random Creatinine (mg/dL) 83.9 Ur Random Sodium (30 - 90 mmol/L) 34 Ur Random Potassium (mmol/L) 41.2 Fraction Sodium Excret (<1% %) 0.6 Diagnostic Data EKG Results Tracing was personally reviewed and shows sinus rhythm with no infarct pattern CXR Results No acute pulmonary disease. Other Results Head CT No acute intracranial pathology. Age-appropriate diffuse parenchymal volume loss and chronic microvascular white matter ischemic changes. Assessment/Plan Assessment/Plan 1. Acute kidney injury now improved; likely prerenal in etiology 2. Transient loss of consciousness likely due to dehydration with possible episode of orthostasis/vasovagal 3. Decreased appetite/oral intake 4. History of hypertension 5. History of hyperlipidemia 6. Hypokalemia The patient's acute kidney injury with rapid improvement with fluid resuscitation suggest a prerenal etiology and she does tell me she has not been eating well due to decreased appetite which may require further evaluation. nlikely this episode was due to significant cardiac pathology but agree with obtaining an echocardiogram and monitoring on telemetry for now. Monitor orthostatics. Correct electrolyte abnormalities as needed. Juan A Witt MD [facility] Consult Acknowledgment - Thank you for your consult request.
[2018-02-27 14:23] VITALS: BP 128/90
--- NOTE | 2018-02-27 15:06 | ULTRASOUND REPORT ---
EXAMINATION: US TRIPLEX OF LOWER EXTREMITIES, BILATERAL CLINICAL INFORMATION: Confusion. Positive D-dimer test. Left leg tenderness. COMPARISON: None TECHNIQUE: Color-flow triplex imaging with spectral analysis and compression Doppler were performed on the lower extremities. FINDINGS: RIGHT: Common femoral vein is compressible and exhibits a normal phasic waveform; this suggests that the iliac veins are widely patent above. Within the proximal thigh, the visualized profunda femoris vein is patent and the examined greater saphenous vein and saphenofemoral junction are normal. The superficial femoral vein is patent in the proximal, mid and distal thigh. The popliteal vein is patent to the level of the trifurcation and the visualized calf veins are compressible. No evidence of Beavers's cyst. LEFT: Common femoral vein is compressible and exhibits a normal phasic waveform. Within the proximal thigh, the visualized profunda femoris vein is patent and the examined greater saphenous vein and saphenofemoral junction are normal. The superficial femoral vein is patent and compressible in the proximal, mid and distal thigh. Nonocclusive thrombus is present within the popliteal vein extending into the tibioperoneal trunk. No evidence of Beavers's cyst. IMPRESSION: There is nonocclusive thrombus within the left popliteal vein extending into the tibioperoneal trunk. The critical test result was discussed with Dr. Sterling at 3 pm on 02/27/2018 and it was ascertained that the content and the importance of the findings was understood at the time of the direct communication.
--- NOTE | 2018-02-27 17:04 | CT SCAN REPORT ---
CT ANGIOGRAM OF THE CHEST WITH CONTRAST (CT PULMONARY ANGIOGRAM FOR PE) CLINICAL INFORMATION: Positive DVT. COMPARISON: Chest x-ray 02/26/2018. TECHNIQUE: Prior to contrast administration, noncontrast localization images were obtained. Subsequently, multidetector volumetric imaging was performed from the thoracic inlet to below the diaphragms following the administration of 95 mL Optiray 350 intravenous contrast. No contrast reaction reported. Sagittal, coronal, and MIP oblique sagittal reformatted images were obtained on the CT workstation, uploaded to PACS, and reviewed. FINDINGS: There is a small pulmonary embolus within a posterior right upper lobe segmental pulmonary arterial branch on image 156 of series 2. No additional pulmonary emboli are identified. There is no focal consolidation, pleural effusion, or pneumothorax. There is diffuse centrilobular emphysema. The thoracic aorta is normal in caliber. The heart is normal in size without evidence of a pericardial effusion. There is coronary artery atherosclerotic calcification. There is no mediastinal, hilar, or axillary adenopathy. There is diffuse hepatic steatosis. No acute osseous abnormalities. Rightward convex thoracic scoliosis. There is diffuse idiopathic skeletal hyperostosis throughout the thoracic spine. IMPRESSION: - There is a small pulmonary embolus within a posterior right upper lobe segmental pulmonary arterial branch on image 156 of series 2. No additional pulmonary emboli are identified. - No acute pulmonary process. Diffuse centrilobular emphysema. - Rightward convex thoracic scoliosis. There is diffuse idiopathic skeletal hyperostosis throughout the thoracic spine. - There is diffuse hepatic steatosis. - Coronary artery atherosclerotic calcification. Findings were discussed with Dr. Sterling at 4:57 PM on 02/27/2018.
--- NOTE | 2018-02-27 21:32 | ECHOCARDIOGRAM REPORT ---
ISABEL ROLDAN Age: 77 : 1940 Gender: F Exam Date: 02/27/2018 17:23 Exam Location: 1 [address] Ht (in): 60 Wt (lb): 158 BSA: 1.77 BP: 148 / 80 Ordering Physician: Irvin Gorman MD Referring Physician: Juan M Witt M.D. Technologist: Giselle Lopez [facility] Room Number: 183 Indications: Arrhythmias Rhythm: Technical Quality: Technically difficult study FINDINGS Left Ventricle Left ventricular cavity size normal. Mild concentric left ventricular hypertrophy. Left ventricle not well visualized, grossly normal. No obvious regional wall motion abnormalities. Left ventricular ejection fraction is estimated at 55 %. Right Ventricle Right ventricle not well visualized, grossly normal. Right Atrium Right atrium not well visualized, grossly normal. Left Atrium Left atrial size at the upper limits of normal. Mitral Valve Mild mitral annular calcification. No mitral stenosis. Mild-to- moderate mitral regurgitation. Aortic Valve Aortic valve not well visualized, grossly normal. Tricuspid Valve Tricuspid valve not well visualized, grossly normal. Mild tricuspid regurgitation. Unable to estimate the right ventricular systolic pressure. Pulmonic Valve Pulmonic valve not well visualized, grossly normal. Pericardium No pericardial effusion. Great Vessels Normal size aortic root. CONCLUSIONS Technically difficult study. Left ventricular cavity size normal. Mild concentric left ventricular hypertrophy. Left ventricle not well visualized, grossly normal. No obvious regional wall motion abnormalities. Left ventricular ejection fraction is estimated at 55 %. Right ventricle not well visualized, grossly normal. Left atrial size at the upper limits of normal. [id number] mitral regurgitation. Unable to estimate the right ventricular systolic pressure. Juan M Witt M.D. (Electronically Signed) Final Date: 27 February 2018 21:28 MEASUREMENTS (Male / Female) Normal Values 2D ECHO LV Diastolic Diameter PLAX 4.0 cm 4.2 - 5.9 / 3.9 - 5.3 cm LV Systolic Diameter PLAX 2.6 cm 2.1 - 4.0 cm LV Fractional Shortening PLAX 35.0 % 25 - 46 % LV Ejection Fraction 2D Teich 64.8 % IVS Diastolic Thickness 1.1 cm LVPW Diastolic Thickness 1.2 cm LV Relative Wall Thickness 0.6 RV Internal Dim ED PLAX 2.6 cm 1.9 - 3.8 cm LVOT Diameter 2.2 cm Aortic Root Diameter 2.9 cm LA Systolic Diameter LX 3.5 cm 3.0 - 4.0 / 2.7 - 3.8 cm LA Volume 30.0 cm 18 - 58 / 22 - 52 cm Ascending Aorta Diameter 3.3 cm DOPPLER AV Peak Velocity 115.0 cm/s AV Peak Gradient 5.3 mmHg AV Mean Velocity 86.2 cm/s AV Mean Gradient 3.0 mmHg AV Velocity Time Integral 27.3 cm LVOT Peak Velocity 67.7 cm/s LVOT Peak Gradient 1.8 mmHg LVOT Mean Velocity 48.5 cm/s LVOT Mean Gradient 1.0 mmHg LVOT Velocity Time Integral 16.8 cm LVOT Stroke Volume 63.9 cm AV Area Cont Eq vti 2.3 cm AV Area Cont Eq pk 2.2 cm MV Peak Velocity 77.4 cm/s MV Peak Gradient 2.4 mmHg MV Mean Velocity 42.3 cm/s MV Mean Gradient 1.0 mmHg Mitral E Point Velocity 43.4 cm/s Mitral A Point Velocity 84.9 cm/s Mitral E to A Ratio 0.5 MV PHT Velocity 54.3 cm/s MV Deceleration [place] 176.0 cm/s MV Pressure Half Time 92.6 ms MV Area PHT 2.4 cm MV Deceleration Time 325.0 ms TR Peak Velocity 265.0 cm/s TR Peak Gradient 28.1 mmHg Right Atrial Pressure 5.0 mmHg Pulmonary Artery Systolic Pressure 33.1 mmHg Right Ventricular Systolic Pressure 33.1 mmHg PV Peak Velocity 79.5 cm/s PV Peak Gradient 2.5 mmHg PV Mean Velocity 51.4 cm/s PV Mean Gradient 1.0 mmHg PV Velocity Time Integral 16.4 cm LV E' Lateral Velocity 5.2 cm/s Mitral E to LV E' Lateral Ratio 8.4 LV E' Septal Velocity 3.2 cm/s Mitral E to LV E' Septal Ratio 13.5
[2018-02-27 22:20] VITALS: BP 140/84
[2018-02-28 06:32] VITALS: BP 132/96
[2018-02-28 08:16] LABS: ABSOLUTE BASOPHIL COUNT 0 /CUMM (0.0-0.2); ABSOLUTE EOSINOPHIL COUNT 0.1 /CUMM (0.0-0.7); ABSOLUTE GRANULOCYTE CT 1.8 /CUMM (1.4-6.5); ABSOLUTE MONOCYTE COUNT 0.6 /CUMM (0.10-0.60); BASOPHIL % 0.4 % (0.0-2.0); GRANULOCYTE % 51.2 % (42.2-75.2); HEMATOCRIT 38.1 % (37-47); MEAN CORPUSCULAR HGB 32.3 PG (27.0-31.0); MEAN CORPUSCULAR HGB CONC 34.3 G/DL (33.0-37.0); MEAN CORPUSCULAR VOLUME 94.2 FL (81.0-99.0); MEAN PLATELET VOLUME 8.3 FL (7.4-10.4); PLATELET COUNT 114 /CUMM (130-400); RBC DISTRIBUTION WIDTH 13.4 % (11.5-14.5); RED BLOOD CELL CT 4.04 /CUMM (4.20-5.40); WHITE BLOOD CELL COUNT 3.5 /CUMM (4.8-10.8)
--- NOTE | 2018-02-28 11:46 | PN- Cardiology ---
Subjective Subjective: The patient is awake, alert The events of the last 24 hours as well as telemetry were reviewed. Review of Systems: The review of systems is negative for chest pains, palpitations nor lightheadedness. The remainder of the 14 point review of systems is noncontributory with the exception of above. Objective Vital Signs and I&Os Vital Signs Date Time Temp Pulse Resp B/P B/P Pulse O2 O2 Flow FiO2 Mean Ox Delivery Rate 02/28 0632 97.9 73 20 132/96 95 Room Air 02/27 2220 97.6 78 20 140/84 95 Room Air 02/27 2116 77 156/94 02/27 1423 97.8 68 20 128/90 95 Room Air Intake & Output 02/28 1600 02/28 0802/28 0000 02/27 1600 02/27 0000 Intake Total 500 800 800 220 0 Output Total 400 Balance 100 800 800 220 0 Intake, IV 500 600 400 Intake, Oral 200 400 220 0 Number 2 Bowel Movements Output, Urine 400 Patient 158 lb 150 lb Weight Weight Estimated Measurement Method Physical Exam: General: Nontoxic, no apparent distress. HEENT: Sclera and conjunctiva within normal limits, without xanthelasmas. Neck: Carotids 2+ without bruits. Respiratory: Clear to auscultation, air movement is good, without accessory respiratory muscle use. Heart: Regular rate and rhythm, without murmurs, without JVD. Abdomen: Soft, nontender, no masses, normoactive bowel sounds. Extremities: Without clubbing, cyanosis, without edema. Neuro: Nonfocal exam, strength, 5 out of 5 Skin: Within normal limits without lesions. Psych: Mood and affect: Normal Current Medications: Current Medications Sig/Valarie Start time Last Medication Dose Route Stop Time Status Admin Acetaminophen 650 MG Q6P PRN 02/27 0100 AC 02/28 PO 0641 Amlodipine Besylate 5 MG DAILY 02/27 0900 AC 02/28 PO 0840 Apixaban 10 MG BID 02/28 2100 AC PO 03/07 0901 Atorvastatin Calcium 20 MG 1700 02/27 1700 AC 02/27 PO 1849 Enoxaparin Sodium 70 MG BID 02/27 2100 DC 02/28 SC 0840 Escitalopram Oxalate 10 MG DAILY 02/27 09 AC 02/28 PO 0840 Gabapentin 300 MG BID 02/27 09 AC 02/28 PO 0840 Heparin Sodium 5,000 UNIT Q8 02/27 0600 DC 02/27 (Porcine) SC 0521 Magnesium Sulfate 1 GM ONCE ONE 02/27 1400 DC 02/27 Dextrose/Water 100 ML IV 02/27 1759 1849 Metoprolol Tartrate 50 MG BID 02/27 0900 AC 02/28 PO 0840 Sodium Chloride 1,000 ML Q20H 02/27 1845 AC 02/28 IV 0150 Sodium Chloride 1,000 ML Q20H 02/27 0830 DC IV Results Last 48 Hrs of Labs/Mics: Laboratory Tests 02/28/18 0635: Anion Gap 6, Estimated GFR > 60, BUN/Creatinine Ratio 16.0, Magnesium 1.8, CBC w Diff NO MAN DIFF REQ, RBC 4.04 L, MCV 94.2, MCH 32.3 H, MCHC 34.3, RDW 13.4, MPV 8.3, Gran % 51.2, Lymphocytes % 28.6, Monocytes % 17.8 H, Eosinophils % 2.0 , Basophils % 0.4, Absolute Granulocytes 1.8, Absolute Lymphocytes 1.0 L, Absolute Monocytes 0.6, Absolute Eosinophils 0.1, Absolute Basophils 0 02/27/18 1800: Sodium Cancelled, Potassium Cancelled, Chloride Cancelled, Carbon Dioxide Cancelled, Anion Gap Cancelled, BUN Cancelled, Creatinine Cancelled, BUN/ Creatinine Ratio Cancelled 02/27/18 0707: Anion Gap 5, Estimated GFR > 60, BUN/Creatinine Ratio 25.6 H, Magnesium 1.6, Troponin I < 0.01, CBC w Diff NO MAN DIFF REQ, RBC 3.97 L, MCV 93.9, MCH 32.3 H, MCHC 34.4, RDW 13.3, MPV 8.2, Gran % 61.3, Lymphocytes % 24.6, Monocytes % 12.8 H, Eosinophils % 1.0, Basophils % 0.3, Absolute Granulocytes 2.4, Absolute Lymphocytes 0.9 L, Absolute Monocytes 0.5, Absolute Eosinophils 0, Absolute Basophils 0 02/27/18 0159: Urinalysis LIGHT H, Urine Color YEL, Urine Clarity CLEAR, Urine pH 6.0, Ur Specific [place] 1.015, Urine Protein NEG, Urine Ketones NEG, Urine Nitrite NEG, Urine Bilirubin NEG, Urine Urobilinogen 0.2, Ur Leukocyte Esterase SMALL H, Ur Microscopic SEDIMENT EXAMINED, Urine WBC 5-10 H, Ur Epithelial Cells MOD H, Urine Bacteria FEW H, Hyaline Casts 3-5 H, Urine Mucus FEW, Urine Hemoglobin NEG, Urine Glucose NEG 02/27/18 0159: Ur Random Creatinine 83.9, Ur Random Sodium 34, Ur Random Potassium 41.2, Fraction Sodium Excret 0.6 02/26/18 2140: Troponin I < 0.01 02/26/18 1845: Anion Gap 14, Estimated GFR 24 L, BUN/Creatinine Ratio 15.0, Glucose 136 H, Lactic Acid 1.8, Calcium 9.3, Total Bilirubin 0.7, AST 76 H, ALT 56 H, Alkaline Phosphatase 111, Troponin I < 0.01, Total Protein 6.6, Albumin 3.9, Globulin 2.7, Albumin/Globulin Ratio 1.4, D-Dimer High Sensitivty 631 H, CBC w Diff NO MAN DIFF REQ, RBC 4.46, MCV 93.5, MCH 32.3 H, MCHC 34.5, RDW 13.0, MPV 8.2, Gran % 66.3, Lymphocytes % 20.2 L, Monocytes % 12.8 H, Eosinophils % 0.4, Basophils % 0.3, Absolute Granulocytes 5.0, Absolute Lymphocytes 1.5, Absolute Monocytes 1.0 H, Absolute Eosinophils 0, Absolute Basophils 0, Serum Alcohol < 10.0 Assessment/Plan Assessment/Plan 77-year-old female with a past medical history of hypertension and hyperlipidemia who presents to [facility] after a transient episode of loss of consciousness. She subsequently found to have a DVT and a small pulmonary embolism by CTA. Syncope: The patient's presentation of syncope is most consistent with her acute pulmonary embolism; however, may be contributed to by dehydration and mild vasovagal effect. She remains anticoagulated, and we will continue with the remainder of her current medication regimen. The echocardiogram findings were reviewed and discussed. Continue telemetry? No
--- NOTE | 2018-02-28 11:56 | PN- Housestaff ---
Adam Best 02/28/18 1153: Subjective Follow-up For: Syncope Subjective: Afebrile overnight. Patient is seen and examined in bed. Patient today denies any shortness of breath, chest pain, and palpitations. Patient is made aware that there was a finding of a PE on her imaging and will be transitioned over to an oral AC from Lovenox. Patient otherwise this morning states she only had a minor back ache, that she relates to sleeping in bed. Patient further feels good today and stable to go home. Review of Systems Constitutional: Reports: see HPI. Objective Last 24 Hrs of Vital Signs/I&O Vital Signs Date Time Temp Pulse Resp B/P B/P Pulse O2 O2 Flow FiO2 Mean Ox Delivery Rate 02/28 0632 97.9 73 20 132/96 95 Room Air 02/27 2220 97.6 78 20 140/84 95 Room Air 02/27 2116 77 156/94 02/27 1423 97.8 68 20 128/90 95 Room Air Intake & Output 02/28 1600 02/28 0800 02/28 0000 Intake Total 500 800 Output Total 400 Balance 100 800 Intake, IV 500 600 Intake, Oral 200 Output, Urine 400 Physical Exam General Appearance: Alert, Oriented X3, Cooperative Skin: No Rashes, No Breakdown HEENT: Atraumatic Neck: Supple, No JVD Cardiovascular: Regular Rate, Normal S1, Normal S2 Lungs: Clear to Auscultation Abdomen: Soft, No Tenderness Neurological: Normal Speech Extremities: No Edema, Normal Pulses Assessment/Plan Assessment: CTA CHEST-PULMONARY EMBOLISM - - There is a small pulmonary embolus within a posterior right upper lobe segmental pulmonary arterial branch on image 156 of series 2. No additional pulmonary emboli are identified. - No acute pulmonary process. Diffuse centrilobular emphysema. - Rightward convex thoracic scoliosis. There is diffuse idiopathic skeletal hyperostosis throughout the thoracic spine. - There is diffuse hepatic steatosis. - Coronary artery atherosclerotic calcification. 77 year old female with PMH of HTN, HLD, migraines, and osteoarthritis presented to ED after a syncopal episode. Syncope: -Cardiology consulted, - to rule out cardiac causes -Check serial troponins negative -f/u orthostatic vital signs- negative -manage electrolytes DVT -D Dimer was elevated and Doppler LE came positive for DVT -CTA; evidence of PE in posterior right upper lobe -Started on Eliquis 10 mg bid, continue for 10 days total and follow with transition to 5 mg bid for total of 6 months duration Acute kidney injury: -Likely a combination of NSAIDs and ARB and some component of dehydration -Check post void residual, consider renal ultrasound if no improvement -Trend renal function -Avoid nephrotoxins -Hold ARB -urine electrolytes and FeNa- normal Hypokalemia: -Repleted orally parenterally in intravenous fluids and 40 M eq given PO -f/u K and mG HTN: -Continue metoprolol and amlodipine -Hold ARB -Monitor blood pressure HLD: -Continue statin therapy Heart healthy diet DVT ppx-heparin scc Full code Problem List: 1. Syncope Pain Ratin Pain Location: NA Pain Goal: Remain pain free Pain Plan: NA Tomorrow's Labs & Rationales: Routine Gurmeet Rehman 02/28/18 1216: Attending MD Review Statement Attending Statement Attending MD Statement: examined this patient, discuss w/resident/PA/PRINTING ROLLER HANDLER, agreed w/resident/PA/PRINTING ROLLER HANDLER, reviewed EMR data (avail), discussed with nursing, discussed with case mgmt Attending Assessment/Plan: PE and DVT left leg- pt started on lovenox and will be switched to eliquis at discharge . plan is to dc her tomorrow am. d/w pt about increasing her activity level at baseline. Pt lives a sedantarly lifestyle. Will change pt to inpatient status.
--- NOTE | 2018-02-28 13:08 | Patient Discharge Instructions ---
Discharge Instructions General Discharge Information You were seen/treated for: Because of the sudden confusion and we find out that you have deep venous thrombosis and pulmonary embolism. You had these procedures: CTA Watch for these problems: If you experience any worsening shortness of breath, chest pain, leg swelling, leg pain, fevers, and fatigue please follow up with your PCP. Special Instructions: Please follow-up with your primary care provider within a week of discharge. Please take the medication as advised. We started you on an anticoagulant called as Eliquis for DVT/PE, please watch for the bleeding. Please follow up with your PCP regarding continuation of Eliquis. You have a 5 week supply currently. Diet Continue normal diet: No Recommended Diet: Heart Healthy Activity Full Activity/No Limits: No Activity Self Limited: Yes Acute Coronary Syndrome Inclusion Criteria At DC or during hospital stay patient has or had the following: ACS DIAGNOSIS No Discharge Core Measures Meds if any: Prescribed or Continued at Discharge Meds if any: NOT Prescribed or Continued at Discharge Congestive Heart Failure Inclusion Criteria At DC or during hospital stay patient has or had the following: CHF DIAGNOSIS No Discharge Core Measures Meds if any: Prescribed or Continued at Discharge Meds if any: NOT Prescribed or Continued at Discharge Cerebrovascular accident Inclusion Criteria At DC or during hospital stay patient has or had the following: CVA/TIA Diagnosis No Discharge Core Measures Meds if any: Prescribed or Continued at Discharge Meds if any: NOT Prescribed or Continued at Discharge Venous thromboembolism Inclusion Criteria VTE Diagnosis Yes VTE Type Pulmonary Embolism VTE Confirmed by (Test) UNILATERAL VENOUS DOPPLER Discharge Core Measures - Per Current guidelines, there needs to be overlap - treatment for the first 5 days of Warfarin therapy. - If discharged on Warfarin prior to 5 days of - overlap therapy, the patient will need to be - assessed for post discharge needs including - *Post discharge parental anticoagulation - *Warfarin and/or parental anticoagulation education - *Follow up date to check INR post discharge At least 5 days overlap therapy as Inpatient No Why was Parental Med stopped Other Anticoagulant given Meds if any: Prescribed or Continued at Discharge Warfarin No Note: Overlap Therapy is Warfarin and Anticoagulant Meds if any: NOT Prescribed or Continued at Discharge No Warfarin d/t Prescribed other Anticoag No Overlap Therapy d/t Prescribed other Anticoag
[2018-02-28 14:59] VITALS: BP 122/80
--- NOTE | 2018-02-28 15:02 | Discharge Summary ---
Visit Information Visit Dates Admission Date: 02/28/18 Discharge Date: 03/01/18 Hospital Course Course Attending Physician: Jose Mccain MD Primary Care Physician: Lauren MORENO,Dylan Garcia Hospital Course: 77 year old female with PMH of HTN, HLD, migraines, and osteoarthritis who presented to ED after a syncopal episode. In the ED vital signs were normal, exam was benign. She recieved 2L NS. Her head CT was negative. D-dimer was elevated to 631. Creatinine of 2.0, normal baseline less than a month ago. Negative troponin. Reportedly patient has been taking large doses of NSAIDS. Patient initially placed in observation on telemetry for syncope evaluation. #Syncope -Cardiology consulted to rule out cardiac causes; syncope presentation most likely result of acute pulmonary embolism, though also contributed by dehydration and mild vasovagal effect -CTA positive; started on Lovenox and transitioned to PO Eliquis -Check serial troponins negative -Followed orthostatic vital signs- negative test result -Managed electrolytes #DVT -D Dimer was elevated and Doppler LE came positive for DVT -CTA; evidence of PE in posterior right upper lobe -Started on Eliquis 10 mg bid, continue for 10 days total and follow with transition to 5 mg bid for total of 6 months duration #Acute kidney injury: -Likely a combination of NSAIDs and ARB and some component of dehydration -Checked post void residual, considered renal ultrasound if no improvement -Trend renal function -Avoided nephrotoxin agents -Held ARB -Urine electrolytes and FeNa- normal #Hypokalemia: -Repleted orally parenterally in intravenous fluids and 40 M eq given PO -followed Potassium and Mg levels #HTN: -Continue metoprolol and amlodipine -Held ARB -Monitor blood pressure Allergies: Coded Allergies: NO KNOWN ALLERGIES (05/22/16) Significant Procedures: CTA CHEST-PULMONARY EMBOLISM - - There is a small pulmonary embolus within a posterior right upper lobe segmental pulmonary arterial branch on image 156 of series 2. No additional pulmonary emboli are identified. - No acute pulmonary process. Diffuse centrilobular emphysema. - Rightward convex thoracic scoliosis. There is diffuse idiopathic skeletal hyperostosis throughout the thoracic spine. - There is diffuse hepatic steatosis. - Coronary artery atherosclerotic calcification. US-EXT BILAT VENOUS DOPPLER - There is nonocclusive thrombus within the left popliteal vein extending into the tibioperoneal trunk. Disposition Summary Disposition Principal Diagnosis: Pulmonary Embolism Additional Diagnosis: Left lower extremity DVT Discharge Disposition: home or self care Discharge Instructions General Discharge Information Code Status: Full Code Patient's Diet: regular Patient's Activity: ad satinder Follow-Up Instructions/Appts: Please follow-up with your primary care provider within a week of discharge. Please take the medication as advised. We started you on bacteria called as Eliquis please watch for the bleeding. Medications at Discharge Discharge Medications: Stop taking the following medications: Ibuprofen/Famotidine (Duexis 800-26.6 MG Tablet) 800 MG-26.6 MG TABLET ORAL TWICE DAILY Qty = 60 Continue taking these medications: Metoprolol Succinate (Metoprolol Succinate) 100 MG TAB.ER.24H 1 Tablet ORAL DAILY Amlodipine Besylate/Benazepril (Lotrel 5-10 MG Capsule) 5 MG-10 MG CAPSULE 1 Capsule ORAL DAILY Ezetimibe/Simvastatin (Vytorin 10-40 MG Tablet) 10 MG-40 MG TABLET 1 Tablet ORAL DAILY Ergocalciferol (Vitamin D2) (Vitamin D2) 50,000 UNIT CAPSULE 1 Capsule ORAL EVERY 2 WEEKS Qty = 6 Gabapentin (Gabapentin) 300 MG CAPSULE 1 Capsule ORAL TWICE DAILY Qty = 60 Escitalopram Oxalate (Escitalopram Oxalate) 10 MG TABLET 1 Tablet ORAL DAILY Qty = 90 Start taking the following new medications: Apixaban (Eliquis) 5 MG TABLET 1 Tablet ORAL TWICE DAILY Qty = 86 No Refills Instructions: 03/01: take 2 tab in PM 03/02-03/07: 2 tab in AM & 2 tab in PM 03/08- : 1 tab in AM & 1 tab in PM Comments: Follow up with your PCP regarding continuing Eliquis. Copies To: Lauren MORENO,Dylan Duncan MD Review Statement Documenting Attending: Ori MORENO,Gurmeet Davis
[2018-02-28] MEDS ORDERED: ELIQUIS5 M1 PO (16:10)
[2018-02-28 22:09] VITALS: BP 138/74
--- NOTE | 2018-03-01 07:27 | PN- Housestaff ---
See Addendum Subjective Follow-up For: Syncope Subjective: Afebrile overnight. Patient is seen and examined in bed. Patient is AAOx3 this morning. Patient states she feels fine this morning with no complaints overnight. Patient however reiterates her concern about having a blood clot in her leg and her lungs; patient made aware that she will need to take an anticoagulant for several months for the clots. Patient otherwise denies any chest pain, palpitations, dizziness, lightheadedness, fevers, chills, and fatigue. Review of Systems Constitutional: Reports: see HPI. Objective Last 24 Hrs of Vital Signs/I&O Vital Signs Date Time Temp Pulse Resp B/P B/P Pulse O2 O2 Flow FiO2 Mean Ox Delivery Rate 02/28 2209 98.3 71 20 138/74 96 Room Air 02/28 1459 98.1 68 20 122/80 95 Room Air Intake & Output 03/01 0800 03/01 0000 02/28 1600 Intake Total 100 150 830 Output Total Balance 100 150 830 Intake, IV 350 Intake, Oral 100 150 480 Number 0 Bowel Movements Physical Exam General Appearance: Alert, Oriented X3, Cooperative, No Acute Distress Skin: No Rashes, No Breakdown HEENT: Atraumatic Neck: Supple, No JVD Cardiovascular: Regular Rate, Normal S1, Normal S2 Lungs: Clear to Auscultation Abdomen: Soft, No Tenderness Neurological: Normal Speech Extremities: No Edema, Normal Pulses Assessment/Plan Assessment: CTA CHEST-PULMONARY EMBOLISM - - There is a small pulmonary embolus within a posterior right upper lobe segmental pulmonary arterial branch on image 156 of series 2. No additional pulmonary emboli are identified. - No acute pulmonary process. Diffuse centrilobular emphysema. - Rightward convex thoracic scoliosis. There is diffuse idiopathic skeletal hyperostosis throughout the thoracic spine. - There is diffuse hepatic steatosis. - Coronary artery atherosclerotic calcification. 77 year old female with PMH of HTN, HLD, migraines, and osteoarthritis presented to ED after a syncopal episode. Syncope: -Cardiology consulted, - to rule out cardiac causes -Check serial troponins negative -f/u orthostatic vital signs- negative -manage electrolytes DVT -D Dimer was elevated and Doppler LE came positive for DVT -CTA; evidence of PE in posterior right upper lobe -Started on Eliquis 10 mg bid, continue for 10 days total and follow with transition to 5 mg bid for total of 6 months duration Acute kidney injury: -Likely a combination of NSAIDs and ARB and some component of dehydration -Check post void residual, consider renal ultrasound if no improvement -Trend renal function; Cr 0.4 03/01 -Avoid nephrotoxins -Hold ARB -urine electrolytes and FeNa- normal Hypokalemia: -Repleted orally parenterally in intravenous fluids and 40 M eq given PO -f/u K and Mg HTN: -Continue metoprolol and amlodipine -Hold ARB -Monitor blood pressure HLD: -Continue statin therapy Heart healthy diet DVT ppx-heparin scc Full code Problem List: 1. Syncope Pain Ratin Pain Location: na Pain Goal: Remain pain free Pain Plan: na Tomorrow's Labs & Rationales: routine
[2018-03-01 08:46] VITALS: BP 148/90
[2018-03-01] MEDS ORDERED: ELIQUIS5 M1 PO ×2 (10:39→10:51)
== END 2018-03-01 11:56 | DRG 176 ==
LOC: ERH 18:20 → ERHI 23:35 → 1NO 23:35 → ENRESERV 02-27 01:07 → 1NO 02-27 02:07 → ENPENDDIS 03-01 10:52 → 1NO 03-01 11:56 → ENTRNSPT 03-01 11:57 → EDTRNSPT 03-01 11:58 → EDTRNSPTSTS 03-01 11:58 → CMPTRNSPT 03-01 12:32
PROVIDERS: Emergency Medicine; Preventive Medicine Public Health & General Preventive Medicine; Student in an Organized Health Care Education/Training Program
DX: I26.99 Other pulmonary embolism without acute cor pulmonale (principal); N17.9 Acute kidney failure, unspecified; I82.432 Acute embolism and thrombosis of left popliteal vein; I82.442 Acute embolism and thrombosis of left tibial vein; E86.0 Dehydration; G43.909 Migraine, unspecified, not intractable, without status migrainosus; E87.6 Hypokalemia; M19.90 Unspecified osteoarthritis, unspecified site; E78.5 Hyperlipidemia, unspecified; I10 Essential (primary) hypertension; Z96.659 Presence of unspecified artificial knee joint
CPT/HCPCS: 1NP; 84133; 84300; 36592; 71045; 81001; 82436; 82570; 87086; 93005; 93010; 93306; 93970; 96360; 97116-GO; 97161-GP; 97530-GO; G0480; J1644; J1650